=== PATIENT | female | born 1990 | race Caucasian/White ===

== ENCOUNTER 2023-08-27 10:38 | Inpatient (IN) ==
[2023-08-27] MEDS ORDERED: OXYTOCIN 30 UNITS/NSS 30 UNITS/500 ML BAG IV PRN (12:26)
[2023-08-27] MEDS ORDERED: LIDOCAINE 1% LOCAL 20 ML VIAL INFIL PRN (12:26)
--- NOTE | 2023-08-27 12:39 | History & Physical Report ---
Date of Service August 27, 2023 Assessment & Plan (1) Encounter for induction of labor: Plan Admit to L and D regular diet x 2 then NPO/IV fluids labs Cervidil PV for cervical ripening then Pitocin AROM as needed to augment labor pain meds including epidural eventually as the pt desires Admission and Anticipated Discharge Date Admission Date: August 27, 2023 History of Present Illness Chief Complaint: induction of labor for postdates. Primary Care Provider: NO PCP pt 32 yr old 41 weeks came in for induction of labor for post dates. pt denies regular uterine contractions, vaginal bleeding, leaking of fluid per vagina etc. repots good movement. Allergies Allergy/AdvReac Type Severity Reaction Status Date / Time Penicillins Allergy Anaphylaxis Verified 08/27/23 11:58 latex AdvReac Rash Verified 08/27/23 11:58 Past Med/Surg History Problem List (Updated 08/27/23 @ 12:36 by Kelly Roland MD) Encounter for induction of labor Medical History No known health problems Surgical History No history of previous surgery Social History Smoking Status: Never smoker Hx Alcohol Use: No Hx Substance Use: No Beliefs That Will Affect Care: None marital status: Current Living Situation: Spouse Other Information That Helps Us Care for You: No Feels Safe at Home: No Is there a partner from a previous relationship who is making you feel unsafe now?: No Any Concerns about Your Family Situation: No Would You Like to Speak to Someone About Your Situation: No Safety Concerns: Feels Safe At This Time Assistive Devices: None Review of Systems Review of Systems: All systems reviewed & are unremarkable except as noted in HPI & below Constitutional: as per Subjective / HPI Respiratory: as per Subjective / HPI Cardiovascular: as per Subjective / HPI Gastrointestinal: as per Subjective / HPI Physical Exam Constitutional: WD/WN, vitals as above Eyes: PERRL, conjunctivae normal, anicteric sclerae Respiratory: normal respiratory effort, lungs clear to auscultation Cardiovascular: RRR, no murmur, no edema Gastrointestinal (Abdomen): normal bowel sounds, soft, nontender, no hepatosplenomegaly Skin: no rashes, warm and dry Genitourinary: no vaginal lesions, no adnexal mass Manual OB Exam: + cervical dilation fingertip, + cervical effacement 30% and + station high OB Exam Monitor Tracing: + external FHT monitor used, + category I and + normal FHT variability Results & Data Results & Data Vital Signs (Past 12 Hours) Vital Signs Temp Pulse Resp BP 08/27/23 10:55 36.6 C 18 08/27/23 10:53 86 116/74 Laboratory Results GBS Negative
[2023-08-27] MEDS: DINOPROSTONE 10 MG INSERT PV ONE (12:42)
[2023-08-27 13:12] LABS: Hematocrit (blood only) 35.4 % (37.0-47.0); Mean Corpuscular Hemoglobin 31.7 pg (25.0-34.0); Mean Corpuscular Hgb Conc 33.9 g/dL (32.0-36.0); Mean Corpuscular Volume 93.7 fL (80.0-100.0); Platelet Count 185 K/uL (130-400); RDW Coefficient of Variation 13.2 % (11.5-14.5); RDW Standard Deviation 44.5 fL (36.4-46.3); Red Blood Count 3.78 M/uL (4.20-5.40); White Blood Count 7.01 K/ul (4.8-10.8)
[2023-08-27 13:52] LABS: HIV 4th Gen(HIV 1,2 AB+p24 Ag Negative (Negative)
[2023-08-27 13:59] LABS: HepB Surface Ag with confirm Negative (Negative)
[2023-08-27 14:04] LABS: HepC Ab Rflx HepCQuant RNA Negative (Negative)
--- OUTSIDE RECORDS SUMMARY | 2023-08-27 19:07 | External Medical Summary | Summary of Care ---
Author Name Unknown Organization [facility] Address [address] [place] [address] Phone [phone] Care Team Providers Care Admitting Supervisor Name Role Phone Kenny East MD Primary Care Provider +1- [phone] Reason for Visit * Reason Onset Date Comments Advice 08/17/2023 Encounter Details Date Type Department Care Team (Late st Contact Info) Description 08/17/2023 Telephone [facility] [address] [place] [address] Kenny East MD [address] [place] [address] Advice Allergies Active Allergy Reactions Criticality Noted Date Comments Amoxicillin 05/03/1999 rash Bee Venom 04/18/1999 Penicillins Low 09/10/2011 documented as of this encounter (statuses as of 08/17/2023) Medications Medication Sig Dispensed Refills Start Date End Date Status Breast Pump Dispense double electric breast pump. Dx:Z39.1 1 Each 05/22/2023 Active documented as of this encounter (statuses as of 08/17/2023) Active Problems Problem Noted Date Diagnosed Date , normal first 01/09/2023 Anxiety 12/18/2022 Dysmenorrhea 10/25/2012 Allergic rhinitis 01/16/2012 ADVANCE DIRECTIVE INFORMATION 09/20/2004 Overview: Not applicable (under age of 18) CONJUNCTIVITIS, ALLERGIC 05/03/1999 Estimated Date of Delivery Comme nts Yes 08/18/2023 Based on last me nstrual period of 11/11/2022 (Exact Date) documented as of this encounter (statuses as of 08/17/2023) Resolved Problems Problem Noted Date Diagnosed Date Resolved Date Fever 10/25/2012 10/22/2014 Acute pharyngitis 01/16/2012 10/22/2014 Overweight (BMI 25.0-29.9) 01/16/2012 0 10/22/2014 BENIGN ISELA SKIN TRUNK 06/14/20052014 STREP SORE THROAT 04/30/2002 09/01/2005 Sebaceous cyst 04/30/2002 10/22/2014 Varicella without complication 09/05/2001 09/01/2005 CLAVICLE FX AT 09/05/2001 022 Overview: Historical - noted 2001 Asthma with severity to be determined 09/05/2001 06/14/2009 Overview: ICD-10 update of inactive term Conjunctivitis 05/18/1999 06/14/2009 Abdominal pain, epigastric 05/03/1999 0 10/22/2014 Constipation 05/03/1999 10/22/2014 Overview: ICD-10 update of inactive term Allergic rhinitis 05/03/1999 01/16/2012 documented as of this encounter (statuses as of 08/17/2023) Immunizations Name Administration Dates Next Due DTWP - Dipth/Tet/Whole Cell Pertussis ,12/10/1989,03/13/1989,01/08,01/08/1989 HPV Vaccine, 4-Valent 07/30/2006,03/30/2006,01/06 Haemophilius B (HIB), unspecified 03/11/1990 Hepatitis B Vaccine 04/20/1994,10/21/1993,1993 IPV - Polio Virus Vaccine (Inact) 06/06/1993 MMR - Measles/Mumps/Rubella Vaccine 06/06/1990,1 02/09/1989 Meningococcal Polysaccharide Vaccine (Menommune) 08/07/2007 OPV - Polio Virus Vaccine (Oral) 12/10/1989,05/1988,1988 Seasonal Influenza Virus Vac cine, Unspecified Formulation 12/05/1994 TB Ellie Test 1989 TD - Tetanus/Diptheria (ADULT) 04/09/2003 documented as of this encounter Social History Tobacco Use Types Packs/Day Years Used Date Smoking Tobacco: Never Passive Smoke Exposure: Never Smokeless Tobacco: Never Comments:non smoking househo ld Alcohol Use Standard Drinks/Week Comments Not Currently 0 (1 standard drink = 0.6 oz pur e alcohol) occ Hunger Vital Sign Answer Date Recorded Within the past 12 months, y ou worried that your food would run out before you got the money to buy more. Never true 01/10/20 23 Within the past 12 months, t he food you bought just didn't last and you didn't have money to get more. Never true 01/09/2023 [place] Depression Scale Answer Date Recorded [place] Depression Scale Total 9 08/06/2023 The thought of harming myself has occurred to me . Never 08/06/2023 Childcare Answer Date Recorded Do you feel overwhelmed with taking care of a child, family member or friend? No 01/09/2023 Does your family need help f inding childcare? (Household - for ages 0-17 years) Not on file 01/09/2023 Clothing Answer Date Recorded Have you been unable to get clothing when it was really needed? No 01/09/2023 Is your family able to get c lothes or diapers when needed? (Household - for ages 0-17 years) Not on file 01/09/2023 Personal Safety Answer Date Recorded Do you feel unsafe or have concerns for your saf ety? No 01/09/2023 Do you have concerns for you r family's safety? (Household - for ages 0-17 years) Not on file 01/09/2023 Utilities Answer Date Recorded Do you have trouble paying y our heating, water, or electric bill? No 01/09/2023 Is your family able to pay t he heat, water, or electric bill? (Household - for ages 0-17 years) Not on file 01/09/2023 Does your family have access to good internet? (Household - for ages 0-17 years) Not on file 01/09/2023 Employment Status Answer Date Recorded Are you unemployed or without regular income? No 01/09/2023 Does the household have a re gular source of income? (Household - for ages 0-17 years) Not on file 01/09/2023 Social Connections Answer Date Recorded How often do you feel lonely or isolated from th ose around you? Never 01/09/2023 Financial Resource Strain Answer Date R ecorded Do you have any trouble payi ng for your medications, or do you think you might in the future? No 01/09/2023 Does your family have troubl e paying for medicine? (Household - for ages 0-17 years) Not on file 01/09/2023 Transportation Needs Answer Date Record ed READ ONLY Do you have troubl e getting a ride to medical visits or work? Never True 01/09/2023 Does your family have a hard time getting a ride to doctors visits? (Household - for ages 0-17 years) Not on file 01/09/2023 Has lack of transportation k ept you from medical appointments, meetings, work, or from getting things needed for daily living? Check all that apply. (Adult - for ages 18 years and over) Not on file 01/09/2023 Do you (or your family) have trouble finding or paying for a ride (transportation)? (Household - for ages 0-17 years) Not on file 01/09/2023 Housing Stability Answer Date Recorded Do you currently live in a s helter or have no steady place to sleep at night? No 01/09/2023 READ ONLY Do you think you a re at risk of becoming homeless? No 01/09/2023 Does your family worry about paying for your home or becoming homeless? (Household - for ages 0-17 years) Not on file 1 03/12/2022 Are you homeless or worried that you might be in the future? (Adult - for ages 18 years and over) Not on file Are you (or your family) ella eless or worried that you might be in the future? (Household - for ages 0-17 years) Not on file Food Insecurity Answer Date Recorded Do you need food for this week? No 01/09/2023 Are you able to get enough f ood for your family? (Household - for ages 0-17 years) Not on file 01/09/2023 Does your family need food t his week? (Household - for ages 0-17 years) Not on file 01/09/2023 Do you always have enough fo od for your family? (Household - for ages 0-17 years) Not on file 01/09/2023 Estimated Date of Delivery Comme nts Yes 08/18/2023 Based on last me nstrual period of 11/11/2022 (Exact Date) Sex and Gender Information Value Date Recorded Sex Assigned at Female 01/09/2023 1:20 PM EST Gender Identity Female 12/17/2022 7:14 PM EST Sexual Orientation Straight 01/09/2023 1: 20 PM EST Job Start Date Occupation Industry Not on file Not on file Not on file documented as of this encounter Miscellaneous Notes * Telephone Encounter - Jossy Sampson LPN - 08/17/2023 11:46 AM EDT Patient calling. Would like an appt. To discuss depression medication. She wants to be prepared . She is not suicidal. Placed with Nicol on 08/20/23 @ 10:40 a.m. Transferred to [place] in THERAPY SITE COORDINATOR scheduling * Telephone Encounter - Juliana Lucas OSA - 08/17/2023 11:41 AM EDT Patient called asking to speak to a nurse with questions regarding depression medications post , also to ask about a vaginal sweep for her . Trans to [facility] nurse: Jossy documented in this encounter Plan of Treatment Upcoming Encounters Date Type Department Care Team (Late st Contact Info) Description 08/20/2023 10:40 AM EDT [facility] Visit [facility] [address] [facility] [place] [id number] Nicol Sanford PA-C [address] [facility] [address] 08/21/2023 3:45 PM EDT Office Visit Gynecology/Obstetrics, [place] [address] [place] [address] Parul Wiggins MD [address] [id number] Health Maintenance Due Date Last Done Comments Depression Screening 2000 DTaP,Tdap,and Td Vaccines (6 - Tdap) 04/10/2003 04/09/2003, 06/06/1993, 06/06/1993, Additional history exists COVID-19 Vaccine ( season) 2022 Influenza Vaccine (FLU shot) (#1) 2023 12/05/1994 Pap Smear 01/09/2026 01/09/2023, 06/05, 06/19/2011 Cervical Cancer Screening 01/10/2028 HPV/Co-Test 01/10/2028 01/09/2023 Hepatitis B Vaccine Completed 04/20/1994, 04/20/1994, 10/21/1993, Additional history exists HPV (Gardasil) Vaccine Completed , 03/30/2006, 01/24/2006 MENINGOCOCCAL (MENACTRA/MENVEO) Aged Out 08/07/2007 No longer eligible based on patient's age to complete this topic Pneumococcal Vaccine: Pediatrics (0 to 5 Years) and At-Risk Patients (6 to 64 Years) Aged Out No longer eligible based on patient's age to complete this topic documented as of this encounter Medical Devices Not on filedocumented as of this encounter Care Teams Admitting Supervisor Relationship Specialty Start Date End Date Kenny East MD [address] [place] [address] PCP - General 03/16/06 documented as of this encounter
--- OUTSIDE RECORDS SUMMARY | 2023-08-27 19:07 | External Medical Summary | Summary of Care ---
Author Name Unknown Organization [facility] Address [address] [place] [address] Phone [phone] Care Team Providers Care Crutch Maker Name Role Phone Kenny East MD Primary Care Provider +1- [phone] Reason for Visit * Reason Comments Return Visit Encounter Details Date Type Department Care Team (Late st Contact Info) Description 08/22/2023 8:30 AM EDT Office Visit Gynecology/Obstetric s [facility]aila Hurtado [address] [place] [address] Norma Richardson CRNP [address] [facility] [place] [address] Encounter for supervision of normal first in third trimester* Allergies Active Allergy Reactions Criticality Noted Date Comments Amoxicillin 05/03/1999 rash Bee Venom 04/18/1999 Penicillins Low 09/10/2011 documented as of this encounter (statuses as of 08/22/2023) Medications Medication Sig Dispensed Refills Start Date End Date Status Breast Pump Dispense double electric breast pump. Dx:Z39.1 1 Each 05/22/2023 Active Escitalopram Oxalate 10 MG Oral Tablet (Lexapro)Indication s:Anxiety Take 0.5 Tablets by mouth daily for 7 days, THEN 1 Tablet daily. 30 Tablet 5 08/20/2023 08/19/2024 Active documented as of this encounter (statuses as of 08/22/2023) Active Problems Problem Noted Date Diagnosed Date , normal first 01/09/2023 Anxiety 12/18/2022 Dysmenorrhea 10/25/2012 Allergic rhinitis 01/16/2012 ADVANCE DIRECTIVE INFORMATION 09/20/2004 Overview: Not applicable (under age of 18) CONJUNCTIVITIS, ALLERGIC 05/03/1999 Estimated Date of Delivery Comme nts Yes 08/18/2023 Based on last me nstrual period of 11/11/2022 (Exact Date) documented as of this encounter (statuses as of 08/22/2023) Resolved Problems Problem Noted Date Diagnosed Date [...] as of this encounter (statuses as of 08/22/2023) Immunizations Name Administration Dates Next Due HPV Vaccine, 4-Valent 07/30/2006,03/30/2006,01/06 Meningococcal Polysaccharide Vaccine (Menommune) 08/07/2007 documented as of this encounter Social History [...] money to get more. Never true 01/09/2023 [place] Depression Scale Answer Date Recorded [place] Depression Scale Total 9 08/06/2023 The thought [...] on file documented as of this encounter Last Filed Vital Signs Vital Sign Reading Time Taken Comments Blood Pressure 102/62 08/22/2023 8:50 AM EDT Pulse - - Temperature - - Respiratory Rate - - Oxygen Saturation - - Inhaled Oxygen Concentration - - Weight 85.3 kg (188 lb) 08/22/2023 8:50 AM EDT Height - - Body Mass Index 29.44 08/20/2023 10:53 AM EDT documented in this encounter Progress Notes * Norma Richardson CRNP - 08/22/2023 8:52 AM EDT 40w4d Ctx, not regular. Good movement. No bleeding/LOF. Recently given prescription for Lexapro through PCP; has not started this but has it on hand for PP if needed. Requests membrane sweep; unable to perform as cervix is long/closed. Scheduled for IOL next Sunday. Call sooner prn. Can Labeler Documentation Provider requested general farmer. Name of general farmer: CARRIE Alejandro documented in this encounter Plan of Treatment Upcoming Encounters Date Type Department Care Team (Late st Contact Info) Description 11/20/2023 11:40 AM EDT [facility] [address] [facility] [id number] Nicol Sanford [facility]-C [address] [facility] [address] Health Maintenance Due Date Last Done Comments Depression Screening 2000 DTaP,Tdap,and Td Vaccines (6 - Tdap) 04/10/2003 04/09/2003, 06/06/1993, 06/06/1993, Additional history exists COVID-19 Vaccine (2022-24 season) 2022 Influenza Vaccine (FLU shot) (#1) [...] Not on filedocumented as of this encounter Visit Diagnoses Diagnosis Encounter for supervision of normal first in third trimester- Primary Supervision of normal first documented in this encounter Care Teams Crutch Maker Relationship Specialty Start Date End Date Kenny East MD [address] [place] [address] PCP - General 03/16/06 documented as of this encounter
--- OUTSIDE RECORDS SUMMARY | 2023-08-27 19:07 | External Medical Summary | Summary of Care ---
Author Name Unknown Organization [facility] Address [address] [place] [address] Phone [phone] Care Team Providers Care Inside Polisher Name Role Phone Kenny East MD Primary Care Provider +1- [phone] Reason for Visit * Reason Onset Date Comments Advice 08/17/2023 Encounter Details Date Type Department Care Team (Late st Contact Info) Description 08/17/2023 Telephone [facility] [address] [place] [address] Kenny East MD [address] [place] [address] Advice Allergies Active Allergy Reactions [...] 08/17/2023) Immunizations Name Administration Dates Next Due HPV [...] money to get more. Never true 01/09/2023 [place] Depression Scale Answer Date Recorded [place] Depression Scale Total 9 08/06/2023 The thought [...] with Nicol on 08/20/23 @ 10:40 a.m. * Telephone Encounter - Juliana Lucas OSA - 08/17/2023 11:41 AM EDT Patient called asking to speak to a nurse with questions regarding depression medications post , also to ask about a vaginal sweep for her . Trans to [facility] nurse: Jossy documented in this encounter Plan of Treatment Upcoming Encounters Date Type Department Care Team (Late st Contact Info) Description 08/20/2023 10:40 AM EDT Office Visit [facility] [address] [place] [address] Nicol Sanford PA-C [address] [place] [address] 08/21/2023 3:45 PM EDT Office Visit Gynecology/Obstetrics, [place] [address] [place] [address] Parul Wiggins MD [address] [facility] [place] [address] Health Maintenance Due Date Last Done Comments [...] filedocumented as of this encounter Care Teams Inside Polisher Relationship Specialty Start Date End Date Kenny East MD [address] [place] [address] PCP - General 03/16/06 documented as of this encounter
--- OUTSIDE RECORDS SUMMARY | 2023-08-27 19:07 | External Medical Summary | Summary of Care ---
Author Name Unknown Organization [facility] Address [address] [place] [address] Phone [phone] Care Team Providers Care Rn Observation Name Role Phone Kenny East MD Primary Care Provider +1- [phone] Encounter Details Date Type Department Care Team (Late st Contact Info) Description 08/17/2023 Telephone Gynecology/Obstetrics [facility] [address] [place] [address] Norma Richardson CRNP [address] [place] [address] Allergies Active Allergy Reactions Criticality Noted Date [...] money to buy more. Never true 01/10/20 Within the past 12 months, t he food you bought just didn't last and you didn't have money to get more. Never true 01/09/2023 [place] Depression Scale Answer Date Recorded [place] Depression Scale Total 9 08/06/2023 The thought [...] encounter Miscellaneous Notes * Telephone Encounter - Roseanna Eugene RN - 08/17/2023 12:10 PM EDT T/C from pt stating her GUI visit for next week is scheduled in [place] and she would like it rescheduled for [facility]. Pt told at this short notice I cannot guarantee her any openings. Pt states she was told if she called in they would get her in. Pt would like to be rescheduled. documented in this encounter Plan of Treatment Upcoming Encounters Date Type Department Care Team (Late st Contact Info) Description 11/20/2023 11:40 AM EDT Office Visit [facility] [address] [place] [address] Nicol Sanford PA-C [address] [place] [address] Health Maintenance Due Date Last Done Comments [...] filedocumented as of this encounter Care Teams Rn Observation Relationship Specialty Start Date End Date Kenny East MD [address] [facility] [place] [address] PCP - General 03/16/06 documented as of this encounter
--- OUTSIDE RECORDS SUMMARY | 2023-08-27 19:07 | External Medical Summary | Summary of Care ---
Author Name Unknown Organization [facility] Address [address] [place] [address] Phone [phone] Care Team Providers Care Scratch Brusher Name Role Phone Kenny East MD Primary Care Provider +1- [phone] Reason for Visit * Reason Comments Return Visit Encounter Details Date Type Department Care Team (Late st Contact Info) Description 08/14/2023 1:45 PM EDT Office Visit Gynecology/Obstetric s Laila Hurtado [address] [facility] [place] [address] Norma Richardson CRNP [address] [facility] [place] [address] Encounter for supervision of normal first in third trimester* Allergies Active Allergy Reactions Criticality Noted Date Comments Amoxicillin 05/03/1999 rash Bee Venom 04/18/1999 Penicillins Low 09/10/2011 documented as of this encounter (statuses as of 08/14/2023) Medications Medication Sig Dispensed Refills Start Date End Date Status Breast Pump Dispense double electric breast pump. Dx:Z39.1 1 Each 05/22/2023 Active documented as of this encounter (statuses as of 08/14/2023) Active Problems Problem Noted Date Diagnosed Date , normal first 01/09/2023 Anxiety 12/18/2022 Dysmenorrhea 10/25/2012 Allergic rhinitis 01/16/2012 ADVANCE DIRECTIVE INFORMATION 09/20/2004 Overview: Not applicable (under age of 18) CONJUNCTIVITIS, ALLERGIC 05/03/1999 Estimated Date of Delivery Comme nts Yes 08/18/2023 Based on last me nstrual period of 11/11/2022 (Exact Date) documented as of this encounter (statuses as of 08/14/2023) Resolved Problems Problem Noted Date Diagnosed Date [...] as of this encounter (statuses as of 08/14/2023) Immunizations Name Administration Dates Next Due HPV [...] money to get more. Never true 01/09/2023 [place] Depression Scale Answer Date Recorded [place] Depression Scale Total 9 08/06/2023 The thought [...] No 01/09/2023 Does the household have a [facility] hospitall[facility] source of income? (Household - for ages [...] Sign Reading Time Taken Comments Blood Pressure 110/64 08/14/2023 1:51 PM EDT Pulse - - Temperature - - Respiratory Rate - - Oxygen Saturation - - Inhaled Oxygen Concentration - - Weight 85.7 kg (189 lb) 08/14/2023 1:51 PM EDT Height - - Body Mass Index 29.6 07/17/2023 10:18 AM EDT documented in this encounter Progress Notes * Norma Richardson CRNP - 08/14/2023 1:57 PM EDT 39w3d Good movement. No regular ctx. Denies bleeding, leaking. Ok with 41 wk induction, nursing to schedule. Discussed induction process. Call with regular ctx, bleeding, concerns for ROM, or decreased FM. 1 week return CARRIE Ramos documented in this encounter Nursing Notes * Stephanie Contreras LPN - 08/14/2023 1:52 PM EDT 39w3d Denies vaginal bleeding/rom + movement No new concerns 41 week IOL documented in this encounter Plan of Treatment Upcoming Encounters Date Type Department Care Team (Late st Contact Info) Description 08/24/2023 3:15 PM EDT Office Visit Gynecology/Obstetrics [facility] [address] [facility] [place] [address] Maria Luz Cade CNM [address] [place] [address] Health Maintenance Due Date Last Done Comments [...] first documented in this encounter Care Teams Scratch Brusher Relationship Specialty Start Date End Date Kenny East MD [address] [place] [address] PCP - General 03/16/06 documented as of this encounter
--- OUTSIDE RECORDS SUMMARY | 2023-08-27 19:07 | External Medical Summary | Summary of Care ---
Author Name Unknown Organization [facility] Address [address] [place] [address] Phone [phone] Care Team Providers Care Report Analyst Name Role Phone Kenny East MD Primary Care Provider +1- [phone] Reason for Visit * Reason Comments Follow Up Pt states that she i s here for medication follow up Encounter Details Date Type Department Care Team (Late st Contact Info) Description 08/20/2023 10:40 AM EDT Office Visit [facility] [address] [place] [address] Nicol Sanford PAWendiC [address] [place] [address] Anxiety*; Encounter for supervision of normal first in third trimester Allergies Active Allergy Reactions Criticality Noted Date Comments Amoxicillin 05/03/1999 rash Bee Venom 04/18/1999 Penicillins Low 09/10/2011 documented as of this encounter (statuses as of 08/20/2023) Medications Medication Sig Dispensed Refills Start Date End Date Status Breast Pump Dispense double electric breast pump. Dx:Z39.1 1 Each 05/22/2023 Active Escitalopram Oxalate 10 MG Oral Tablet (Lexapro)Indication s:Anxiety Take 0.5 Tablets by mouth daily for 7 days, THEN 1 Tablet daily. 30 Tablet 5 08/20/2023 08/19/2024 Active documented as of this encounter (statuses as of 08/20/2023) Active Problems Problem Noted Date Diagnosed Date , normal first 01/09/2023 Anxiety 12/18/2022 Dysmenorrhea 10/25/2012 Allergic rhinitis 01/16/2012 ADVANCE DIRECTIVE INFORMATION 09/20/2004 Overview: Not applicable (under age of 18) CONJUNCTIVITIS, ALLERGIC 05/03/1999 Estimated Date of Delivery Comme nts Yes 08/18/2023 Based on last me nstrual period of 11/11/2022 (Exact Date) documented as of this encounter (statuses as of 08/20/2023) Resolved Problems Problem Noted Date Diagnosed Date [...] as of this encounter (statuses as of 08/20/2023) Immunizations Name Administration Dates Next Due HPV Vaccine, 4-Valent 07/30/2006,03/30/2006,01/06 Meningococcal Polysaccharide Vaccine ([place]) 08/07/2007 documented as of this encounter Social History Tobacco Use Types Packs/Day Years Used Date Smoking Tobacco: Never Passive Smoke Exposure: Never Smokeless Tobacco: Never Tobacco Cessation:Counseling Given: Not Answered Comments:non smoking household Alcohol Use Standard Drinks/Week Comments Not Currently [...] money to get more. Never true 01/09/2023 [place] Depression Scale Answer Date Recorded [place] Depression Scale Total 9 08/06/2023 The thought [...] Sign Reading Time Taken Comments Blood Pressure 126/80 08/20/2023 10:53 AM EDT Pulse 114 08/20/2023 10:53 AM EDT Temperature 36.1 C (96.9 F) 08/20/2023 10:53 AM E DT Respiratory Rate 16 08/20/2023 10:53 AM EDT Oxygen Saturation 98% 08/20/2023 10:53 AM EDT Inhaled Oxygen Concentration - - Weight 85.9 kg (189 lb 6.4 oz) 08/20/2023 10:53 AM EDT Height 170.2 cm (5' 7") 08/20/2023 10:53 AM EDT Body Mass Index 29.66 08/20/2023 10:53 AM EDT documented in this encounter Progress Notes * Nicol Sanford PA-C - 08/20/2023 10:48 AM EDT Images from the original note were not included. History of Present Illness Yeni Ang is a 32 year old female that presents for Follow Up (Pt states that she is here for medication follow up) Here for med follow up 2 years ago was on Prozac She is being induced on Sunday. Baby is a by and is measuring big Having contractions She is going about her day as normal Drinking well - at least 120 oz a day At one point was taking 10 mg of prozac She never took consistently She felt like it was not a good idea as she knew she was going to get . She is planning on breast feeding. Physical Exam Vitals: 08/20/23 1053 Temp: 36.1 C (96.9 F) Pulse: 114 Resp: 16 SpO2: 98% BP: 126/80 BMI: 29.66 BP Readings from Last 3 Encounters: 08/20/23 126/80 08/14/23 110/64 08/06/23 106/64 Wt Readings from Last 3 Encounters: 08/20/23 85.9 kg (189 lb 6.4 oz) 08/14/23 85.7 kg (189 lb) 08/06/23 85.7 kg (189 lb) BMI Readings from Last 3 Encounters: 08/20/23 29.66 kg/m 08/14/23 29.60 kg/m 08/06/23 29.60 kg/m Ht Readings from Last 3 Encounters: 08/20/23 1.702 m (5' 7") 07/17/23 1.702 m (5' 7") 06/07/23 1.702 m (5' 7") General: alert, healthy, and no distress Head: Normocephalic, No masses, lesions, tenderness or abnormalities Heart: regular rate & rhythm, no murmur, no gallops, S-1 normal, and S-2 normal Lungs: chest symmetric with normal AP diameter, no chest deformities noted, no chest wall tenderness, lungs clear to auscultation Extremities: less than 2 second capillary refill, no joint deformities, effusion, or inflammation Skin: skin color, texture, turgor are normal, no rashes or significant lesions Assessment and Plan Anxiety (Primary) - Escitalopram Oxalate 10 MG Oral Tablet (Lexapro); Take 0.5 Tablets by mouth daily for 7 days, THEN 1 Tablet daily. Encounter for supervision of normal first in third trimester Wrap-Up Per literature, zoloft and lexapro safest in breast feeding She defers zoloft Time: I spent a total of 10-19 minutes (exact time 19 mins) on the date of service in preparation, delivery, and documentation of the care provided to Yeni Ang excluding any time spent in the performance of separately billed services. Nicol Sanford PA-C 08/20/2023 11:21 AM documented in this encounter Nursing Notes * Patricia Pearson LPN - 08/20/2023 10:53 AM EDT Yeni Ang is a 32 year old female who presents today for Chief Complaint Patient presents with Follow Up Pt states that she is here for medication follow up documented in this encounter Plan of Treatment Upcoming Encounters Date Type Department Care Team (Late st Contact Info) Description 08/21/2023 3:45 PM EDT Office Visit Gynecology/Obstetrics, [place] [address] [address] Parul Wiggins MD [address] [place] [address] 11/20/2023 11:40 AM EDT Office Visit [facility] [place] [address] [place] [address] Nicol Sanford PA-C [address], [place] [id number] Health Maintenance Due Date Last Done Comments [...] as of this encounter Visit Diagnoses Diagnosis Anxiety- Primary Anxiety state, unspecified Encounter for supervision of normal first in third trimester Supervision of normal first documented in this encounter Care Teams Report Analyst Relationship Specialty Start Date End Date Kenny East MD [address] [facility] [address] PCP - General 03/16/06 documented as of this encounter
--- OUTSIDE RECORDS SUMMARY | 2023-08-27 19:08 | External Medical Summary | Summary of Care ---
Author Name Unknown Organization [facility] Address [address] [place] [address] Phone [phone] Care Team Providers Care Retail Department Supervisor Name Role Phone Kenny East MD Primary Care Provider +1- [phone] Reason for Visit * Reason Comments Outpatient Testing Encounter Details Date Type Department Care Team (Late st Contact Info) Description 06/29/2023 2:00 PM EDT Laboratory Laboratory, [facility] [address] [place] [phone] [facility] [address] [place] [address] Encounter for supervision of normal first in second trimester; Encounter for supervision of normal first in third trimester Allergies Active Allergy Reactions Criticality Noted Date Comments Amoxicillin 05/03/1999 rash Bee Venom 04/18/1999 Penicillins Low 09/10/2011 documented as of this encounter (statuses as of 06/29/2023) Medications Medication Sig Dispensed Refills Start Date End Date Status Breast Pump Dispense double electric breast pump. Dx:Z39.1 1 Each 05/22/2023 Active documented as of this encounter (statuses as of 06/29/2023) Active Problems Problem Noted Date Diagnosed Date , normal first 01/09/2023 Anxiety 12/18/2022 Dysmenorrhea 10/25/2012 Allergic rhinitis 01/16/2012 ADVANCE DIRECTIVE INFORMATION 09/20/2004 Overview: Not applicable (under age of 18) CONJUNCTIVITIS, ALLERGIC 05/03/1999 Estimated Date of Delivery Comme nts Yes 08/18/2023 Based on last me nstrual period of 11/11/2022 (Exact Date) documented as of this encounter (statuses as of 06/29/2023) Resolved Problems Problem Noted Date Diagnosed Date [...] as of this encounter (statuses as of 06/29/2023) Immunizations Name Administration Dates Next Due HPV [...] money to get more. Never true 01/09/2023 [place] Depression Scale Answer Date Recorded [place] Depression Scale Total 6 01/09/2023 The thought of harming myself has occurred to me . Never 01/09/2023 Estimated Date of Delivery Comme nts [...] on file documented as of this encounter Plan of Treatment Upcoming Encounters Date Type Department Care Team (Late st Contact Info) Description 07/17/2023 10:00 AM EDT Office Visit Gynecology/Obstetrics [facility] [address] [place] [address] Esther Garcia CRNP [address] [place] [address] Pending Results Name Type Priority Associated Diagnoses Date /Time CBC WITH WBC DIFFERENTIAL AND ANEMIA REFLEX WORKUP Lab Routine Encounter for supervision of normal first in second trimester 06/29/2023 2:44 PM EDT SYPHILIS ANTIBODY SCREEN WITH REFLEX TO RPR Lab Routine Encounter for supervision of normal first in second trimester 06/29/2023 2:44 PM EDT 50-G GESTATIONAL GLUCOSE, 1 HOUR Lab Routine Encounter for supervision of normal first in third trimester 06/29/2023 2:44 PM EDT ANEMIA CBC Lab Routine Encounter for supervision of normal first in second trimester 06/29/2023 2:44 PM EDT DIFFERENTIAL, AUTOMATED Lab Routine Encounter for supervision of normal first in second trimester 06/29/2023 2:44 PM EDT ANEMIA REFLEX CHEMISTRY HOLD Lab Routine Encounter for supervision of normal first in second trimester 06/29/2023 2:44 PM EDT SYPHILIS ANTIBODY SCREEN Lab Routine Encounter for supervision of normal first in second trimester 06/29/2023 2:44 PM EDT Health Maintenance Due Date Last Done Comments Depression Screening 2000 DTaP,Tdap,and Td Vaccines (6 - Tdap) 04/10/2003 04/09/2003, 06/06/1993, 06/06/1993, Additional history exists COVID-19 Vaccine ( season) 2022 Influenza Vaccine (FLU shot) (Season Ended) 2023 12/05/1994 Pap Smear 01/09/2026 01/09/2023, 06/05, 06/19/2011 Cervical Cancer Screening 01/10/2028 HPV/Co-Test 01/10/2028 01/09/2023 Hepatitis B Completed 04/20/1994, 04/05, 10/21/1993, Additional history exists GARDASIL-HPV IMMUNIZATION SERIES Completed 07/30/2006, 03/30/2006, 01/24/2006 MENINGOCOCCAL (MENACTRA/MENVEO) Aged Out 08/07/2007 [...] Encounter for supervision of normal first in second trimester Supervision of normal first Encounter for supervision of normal first in third trimester Supervision of normal first documented in this encounter Care Teams Retail Department Supervisor Relationship Specialty Start Date End Date Kenny East MD [address] [place] [address] PCP - General 03/16/06 documented as of this encounter
--- OUTSIDE RECORDS SUMMARY | 2023-08-27 19:08 | External Medical Summary ---
Author Name Unknown Address Unknown Organization [id number]:LABORATORY [facility] [place] - [address] [facility] [place] [address] Laboratory Report Ordering Provider Test Date Status GEOVANI BUSBY 06/29/2023 14:44:29 Final Observation Date Value Abnormality Reference (Units ) Status Treponema pallidum Ab [Presence] in Serum by Immunoassay 06/29/2023 14:44:29 Nonreactive Nonreactive Final No serologic evidence of syp hilis. No additional testing clinicially indicated at this time. Consider repeat testing in 2-4 weeks if acute or primary syphilis is suspected. Performing Location LABORATORY [facility] [address] [facility] [address]
--- OUTSIDE RECORDS SUMMARY | 2023-08-27 19:08 | External Medical Summary ---
Author Name Unknown Address Unknown Organization [id number]:[facility] [place] [address] [place] [address] Laboratory Report Ordering Provider Test Date Status GEOVANI BUSBY 06/29/2023 14:44:29 Final Observation Date Value Abnormality Reference (Units ) Status Creatinine 06/29/2023 14:44:29 0.7 0.5-1.0 (mg/dL) Final Glomerular filtration rate/1.73 sq M.predicted [Volume Rate/Area] in Serum, Plasma or Blood by Creatinine-based formula (CKD-EPI) 06/29/2023 14:44:29 >90 >=60 (mL/min) Final eGFR is calculated based on the CKD-EPI 2020 equation Performing Location LAB[facility]ORY [facility] - [place] [address] [place] [address]
--- OUTSIDE RECORDS SUMMARY | 2023-08-27 19:08 | External Medical Summary | Summary of Care ---
Author Name Unknown Organization [facility] Address [address] [place] [address] Phone [phone] Care Team Providers Care Learning Disabilities Resource Teacher Name Role Phone Kenny East MD Primary Care Provider +1- [phone] Reason for Visit * Reason Comments Return Visit Encounter Details Date Type Department Care Team (Late st Contact Info) Description 07/27/2023 2:30 PM EDT Office Visit Gynecology/Obstetric s [facility] [address] [place] [address] Adelina Perez, DNP, CNM [address] [place] [address] Supervision of normal first , antepartum* Allergies Active Allergy Reactions Criticality Noted Date Comments Amoxicillin 05/03/1999 rash Bee Venom 04/18/1999 Penicillins Low 09/10/2011 documented as of this encounter (statuses as of 07/27/2023) Medications Medication Sig Dispensed Refills Start Date End Date Status Breast Pump Dispense double electric breast pump. Dx:Z39.1 1 Each 05/22/2023 Active documented as of this encounter (statuses as of 07/27/2023) Active Problems Problem Noted Date Diagnosed Date , normal first 01/09/2023 Anxiety 12/18/2022 Dysmenorrhea 10/25/2012 Allergic rhinitis 01/16/2012 ADVANCE DIRECTIVE INFORMATION 09/20/2004 Overview: Not applicable (under age of 18) CONJUNCTIVITIS, ALLERGIC 05/03/1999 Estimated Date of Delivery Comme nts Yes 08/18/2023 Based on last me nstrual period of 11/11/2022 (Exact Date) documented as of this encounter (statuses as of 07/27/2023) Resolved Problems Problem Noted Date Diagnosed Date [...] as of this encounter (statuses as of 07/27/2023) Immunizations Name Administration Dates Next Due HPV [...] money to get more. Never true 01/09/2023 [place] Depression Scale Answer Date Recorded [place] Depression Scale Total 6 01/09/2023 The thought of harming myself has occurred to me . Never 01/09/2023 Childcare Answer Date Recorded Do you feel [...] No 01/09/2023 Does the household have a [facility] source of income? (Household - for [...] Sign Reading Time Taken Comments Blood Pressure 102/64 07/27/2023 2:53 PM EDT Pulse - - Temperature - - Respiratory Rate - - Oxygen Saturation - - Inhaled Oxygen Concentration - - Weight 86.4 kg (190 lb 6.4 oz) 07/27/2023 2:53 P M EDT Height - - Body Mass Index 29.82 07/17/2023 10:18 AM EDT documented in this encounter Progress Notes * Adelina Perez DNP, CNM - 07/27/2023 3:14 PM EDT 36w6d Doing well, working out doing [employer], lifting, and yoga 5-6 days per week. Plans to use condoms forpp contraception. GBS culture collected today RTO in 1 week for GUI. * Alana Ruffin MED ASSIST - 07/27/2023 2:53 PM EDT 36w6d Denies vaginal bleeding/rom + movements + headache this week GBS today documented in this encounter Plan of Treatment Upcoming Encounters Date Type Department Care Team (Late st Contact Info) Description 08/06/2023 1:30 PM EDT Office Visit Gynecology/Obstetrics [facility] [address] [place] [address] Norma Richardson CRNP [address] [place] [address] 08/14/2023 1:45 PM EDT Office Visit Gynecology/Obstetrics [facility] [address] [place] [address] Norma Richardson CRNP [address] [place] [address] Scheduled Orders Name Type Priority Associated Diagnoses Orde r Schedule GROUP B STREP CULTURE/PCR Lab Routine Supervision of normal first , antepartum Expected: 07/27/2023, Expires: 07/26/2024 Health Maintenance Due Date Last Done Comments [...] as of this encounter Visit Diagnoses Diagnosis Supervision of normal first , antepartum- Primary documented in this encounter Care Teams Learning Disabilities Resource Teacher Relationship Specialty Start Date End Date Kenny East MD [address] [place] [address] PCP - General 03/16/06 documented as of this encounter
--- OUTSIDE RECORDS SUMMARY | 2023-08-27 19:08 | External Medical Summary ---
Author Name Unknown Address Unknown Organization [id number]:LABORATORY [facility] - [address] [place] [address] Laboratory Report Ordering Provider Test Date Status JORGE ALBERTO CASILLAS 06/29/2023 14:44:29 Final The Fresh Test Observation Date Value Abnormality Reference (Units ) Status Glucose [Moles/volume] in Serum or Plasma --1 hour post 50 g glucose PO 06/29/2023 14:44:29 117 70-129 (mg/dL) Final Performing Location LABORATORY [facility] - [address] [place] [address]
--- OUTSIDE RECORDS SUMMARY | 2023-08-27 19:08 | External Medical Summary ---
Author Name Unknown Address Unknown Organization [id number]:LABORATORY [facility] [place] - [address] [place] [address] Laboratory Report Ordering Provider Test Date Status GEOVANI BUSBY 06/29/2023 14:44:29 Final Observation Date Value Abnormality Reference (Units ) Status Vitamin B12 06/29/2023 14:44:29 168 [id number] (pg/mL) Final Performing Location LABORATORY [facility] - [address] [place] [address]
--- OUTSIDE RECORDS SUMMARY | 2023-08-27 19:08 | External Medical Summary ---
Author Name Unknown Address Unknown Organization [id number]:LABORATORY [facility] [place] - [address] [place] [address] Laboratory Report Ordering Provider Test Date Status GEOVANI BUSBY 06/29/2023 14:44:29 Final Observation Date Value Abnormality Reference (Units ) Status TSH 06/29/2023 14:44:29 1.74 0.27-4.20 (uIU/mL) Final Performing Location LABORATORY [facility] - [address] [place] [address]
--- OUTSIDE RECORDS SUMMARY | 2023-08-27 19:08 | External Medical Summary ---
Author Name Unknown Address Unknown Organization [id number]:LABORATORY [facility] - [address] [place] [address] Laboratory Report Ordering Provider Test Date Status GEOVANI BUSBY 06/29/2023 14:44:29 Final Observation Date Value Abnormality Reference (Units ) Status Ferritin 06/29/2023 14:44:29 11 Below low normal 13- 150 (ng/mL) Final Performing Location LABORATORY [facility] - [address] [place] [address]
--- OUTSIDE RECORDS SUMMARY | 2023-08-27 19:08 | External Medical Summary ---
Author Name Unknown Address Unknown Organization [id number]:LABORATORY [facility] [place] - [address] [place] [address] Laboratory Report Ordering Provider Test Date Status INEZ HERNANDEZ 07/27/2023 16:02:37 Final Observation Date Value Abnormality Reference (Units ) Status Streptococcus agalactiae DNA [Presence] in Specimen by BRIANNA with probe detection 07/27/2023 16:02:37 Negative Negative Final No Group B Streptococcus det ected by culture-enhanced PCR (amplified probe). GBS GBSCT - [facility] 07/27/2023 16:02:37 0.0 Final GBS SPCCT - [facility] 07/27/2023 16:02:37 32.0 Final Performing Location LABORATORY [facility] [place] - [address] [place] [address]
--- OUTSIDE RECORDS SUMMARY | 2023-08-27 19:08 | External Medical Summary | Summary of Care ---
Author Name Unknown Organization [facility] Address [address] [place] [address] Phone [phone] Care Team Providers Care Substation Operator Helper Name Role Phone Kenny East MD Primary Care Provider +1- [phone] Reason for Visit * Reason Comments Return Visit Encounter Details Date Type Department Care Team (Late st Contact Info) Description 07/17/2023 10:00 AM EDT Office Visit Gynecology/Obstetric s [facility] [address] [place] [address] Esther Garcia CRNP [address] [place] [facility] [place] [address] Encounter for supervision of normal first in third trimester* Allergies Active Allergy Reactions Criticality Noted Date Comments Amoxicillin 05/03/1999 rash Bee Venom 04/18/1999 Penicillins Low 09/10/2011 documented as of this encounter (statuses as of 07/17/2023) Medications Medication Sig Dispensed Refills Start Date End Date Status Breast Pump Dispense double electric breast pump. Dx:Z39.1 1 Each 05/22/2023 Active documented as of this encounter (statuses as of 07/17/2023) Active Problems Problem Noted Date Diagnosed Date , normal first 01/09/2023 Anxiety 12/18/2022 Dysmenorrhea 10/25/2012 Allergic rhinitis 01/16/2012 ADVANCE DIRECTIVE INFORMATION 09/20/2004 Overview: Not applicable (under age of 18) CONJUNCTIVITIS, ALLERGIC 05/03/1999 Estimated Date of Delivery Comme nts Yes 08/18/2023 Based on last me nstrual period of 11/11/2022 (Exact Date) documented as of this encounter (statuses as of 07/17/2023) Resolved Problems Problem Noted Date Diagnosed Date [...] as of this encounter (statuses as of 07/17/2023) Immunizations Name Administration Dates Next Due HPV [...] money to get more. Never true 01/09/2023 [place] Depression Scale Answer Date Recorded [place] Depression Scale Total 6 01/09/2023 The thought [...] Sign Reading Time Taken Comments Blood Pressure 98/66 07/17/2023 10:18 AM EDT Pulse - - Temperature - - Respiratory Rate - - Oxygen Saturation - - Inhaled Oxygen Concentration - - Weight 84.4 kg (186 lb) 07/17/2023 10:18 AM EDT Height 170.2 cm (5' 7") 07/17/2023 10:18 AM EDT Body Mass Index 29.13 07/17/2023 10:18 AM EDT documented in this encounter Progress Notes * Esther Garcia CRNP - 07/17/2023 10:26 AM EDT 35w3d No concerns. Baby is active. Denies contractions, bleeding, LOF. Discussed GBS at next visit. CARRIE Gandhi documented in this encounter Nursing Notes * Anika Mccoy LPN - 07/17/2023 10:19 AM EDT 35w3d Denies concerns documented in this encounter Plan of Treatment Upcoming Encounters Date Type Department Care Team (Late st Contact Info) Description 07/27/2023 2:30 PM EDT Office Visit Gynecology/Obstetrics [facility] [address] [facility] [place] [address] Adelina Perez, LICHA, CN [address] [facility] [place] [address] 08/06/2023 1:30 PM EDT Office Visit Gynecology/Obstetrics [facility] [address] [facility] [place] [address] Norma Richardson CRNP [address] [place] [address] 08/14/2023 1:45 PM EDT Office Visit Gynecology/Obstetrics [facility] [address] [place] [place] [address] Norma Richardson CRNP [address] [place] [address] Health Maintenance Due Date Last Done Comments [...] first documented in this encounter Care Teams Substation Operator Helper Relationship Specialty Start Date End Date Kenny East MD [address] [place] [address] PCP - General 03/16/06 documented as of this encounter
--- OUTSIDE RECORDS SUMMARY | 2023-08-27 19:08 | External Medical Summary | Summary of Care ---
Author Name Unknown Organization [facility] Address [address] [place] [address] Phone [phone] Care Team Providers Care Rubber Flap Cutter Name Role Phone Kenny East MD Primary Care Provider +1- [phone] Reason for Visit * Reason Comments Return Visit Encounter Details Date Type Department Care Team (Late st Contact Info) Description 07/27/2023 2:30 PM EDT Office Visit Gynecology/Obstetric s [facility] [address] [place] [address] Adelina Perez, DNP, CNM [address] [place] [address] Supervision of normal first , [...] 07/27/2023) Immunizations Name Administration Dates Next Due DTWP [...] money to get more. Never true 01/09/2023 [place] Depression Scale Answer Date Recorded [place] Depression Scale Total 6 01/09/2023 The thought [...] 1:30 PM EDT Office Visit Gynecology/Obstetrics [facility] [address] [place] [address] Norma Richardson CRNP [address] [place] [address] 08/14/2023 1:45 PM EDT Office Visit Gynecology/Obstetrics [facility] [address] [place] [address] Norma Richardson CRNP [address] [place] [address] Pending Results Name Type Priority Associated Diagnoses Date /Time GROUP B STREP CULTURE/PCR Lab Routine Supervision of normal first , antepartum 07/27/2023 4:02 PM EDT Scheduled Orders Name Type Priority Associated Diagnoses [...] Primary documented in this encounter Care Teams Rubber Flap Cutter Relationship Specialty Start Date End Date Kenny East MD [address] [place] [address] PCP - General 03/16/06 documented as of this encounter
--- OUTSIDE RECORDS SUMMARY | 2023-08-27 19:08 | External Medical Summary ---
Author Name Unknown Address Unknown Organization [id number]:LABORATORY [facility] [place] - [address] [place] [address] Laboratory Report Ordering Provider Test Date Status GEOVANI BUSBY 06/29/2023 14:44:29 Final Observation Date Value Abnormality Reference (Units ) Status Folic Acid 06/29/2023 14:44:29 10.5 >4.5 (ng/ mL) Final Performing Location LABORATORY [facility] - [address] [place] [address]
--- OUTSIDE RECORDS SUMMARY | 2023-08-27 19:08 | External Medical Summary ---
Author Name Unknown Address Unknown Organization K01:LABORATORY [place] [address] [address] [facility] [address] [facility] [address] Laboratory Report Ordering Provider Test Date Status KEHINDEGEOVANI 06/29/2023 14:44:29 Final Observation Date Value Abnormality Reference (Units ) Status Retic, % (auto) 06/29/2023 14:44:29 2.46 Above high normal 0.80-1.90 (%) Final Reticulocytes, Absolute 06/29/2023 14:44:29 89.8 31.3-100.1 (K/uL) Final Reticulocyte fraction, immature 06/29/2023 14:44:29 26.6 Above high normal 2.5-20.6 (%) Final Reticulocyte HGB 06/29/2023 14:44:29 35.2 29.7-37.4 (pg) Final Performing Location LABORATORY [facility] - [facility] [address] [facility] [address]
--- OUTSIDE RECORDS SUMMARY | 2023-08-27 19:08 | External Medical Summary ---
Author Name Unknown Address Unknown Organization [id number]:LABORATORY [facility] [place] - [address] [place] [id number] Laboratory Report Ordering Provider Test Date Status GEOVANI BUSBY 06/29/2023 14:44:29 Final Observation Date Value Abnormality Reference (Units ) Status WBC, Total 06/29/2023 14:44:29 8.33 4.00-10.8 0 (K/uL) Final RBC 06/29/2023 14:44:29 3.62 3.85-5.15 (M/uL) Final Hemoglobin 06/29/2023 14:44:29 11.6 Below low normal 12 .0-15.3 (g/dL) Final Anemia reflex testing trigge rs on a HGB < 12.0 for Females and HGB < 13.0 for Males in accordance with the WHO Anemia Guidelines
Anemia reflex testing triggers on a HGB < 12.0 for Females and HGB < 13.0 for Males in accordance with the WHO Anemia Guidelines HCT 06/29/2023 14:44:29 35.3 Below low normal 36. 0-45.2 (%) Final MCV 06/29/2023 14:44:29 97.5 81.5-97.5 (fL) Final MCH 06/29/2023 14:44:29 32.0 27.0-34.0 (pg) Final MCHC 06/29/2023 14:44:29 32.9 32.0-36.0 (g/dL) Final RDW 06/29/2023 14:44:29 12.8 11.5-15.5 (%) Final Platelets 06/29/2023 14:44:29 218 140-400 (K /uL) Final MPV 06/29/2023 14:44:29 11.0 6.6-11.1 ( fL) Final Nucleated erythrocytes/100 leukocytes [Ratio] in Blood by Automated count 06/29/2023 14:44:29 0 <=0 (/100 WBCs) Final Performing Location LABORATORY [facility] - [address] [facility] [address]
--- OUTSIDE RECORDS SUMMARY | 2023-08-27 19:08 | External Medical Summary | Summary of Care ---
Author Name Unknown Organization [facility] Address [address] [place] [address] Phone [phone] Care Team Providers Care Ballet Teacher Name Role Phone Kenny East MD Primary Care Provider +1- [phone] Reason for Visit * Reason Comments Return Visit Encounter Details Date Type Department Care Team (Late st Contact Info) Description 06/29/2023 1:45 PM EDT Office Visit Gynecology/Obstetric s Laila Hutrado [address] [facility] [place] [address] Norma Richardson CRNP [address] [facility] [place] [address] Encounter for supervision of normal first in third trimester* Allergies Active Allergy Reactions Criticality Noted Date Comments Amoxicillin 05/03/1999 rash Bee Venom 04/18/1999 Penicillins Low 09/10/2011 documented as of this encounter (statuses as of 06/29/2023) Medications Medication Sig Dispensed Refills Start Date End Date Status Breast Pump Dispense double electric breast pump. Dx:Z39.1 1 Each 05/22/2023 Active 19 29-1 MG Oral Tablet Chewable Take by mouth. 06/29/2023 Discontinu ed( Medication List Clean Up) documented as of this encounter (statuses as [...] money to get more. Never true 01/09/2023 [place] Depression Scale Answer Date Recorded [place] Depression Scale Total 6 01/09/2023 The thought [...] Sign Reading Time Taken Comments Blood Pressure 108/66 06/29/2023 1:44 PM EDT Pulse - - Temperature - - Respiratory Rate - - Oxygen Saturation - - Inhaled Oxygen Concentration - - Weight 83 kg (183 lb) 06/29/2023 1:44 PM EDT Height - - Body Mass Index 28.66 06/07/2023 2:45 PM EDT documented in this encounter Progress Notes * Norma Richardson CRNP - 06/29/2023 1:46 PM EDT 32w6d Completing labs, including GTT, today. Plans to get Tdap, counseled on this and advised to complete by next visit. Reports good movement. No regular ctx, leaking, bleeding. Discussed BH ctx. Reviewed package clerk selection. Discussed nutrition in . Intends to deliver at [facility]. 2 week return. CARRIE Ramos * Stephanie Contreras LPN - 06/29/2023 1:43 PM EDT 32w6d Denies vaginal bleeding/rom + movement Gtt today No new concerns documented in this encounter Plan of Treatment Upcoming Encounters Date Type Department Care Team (Late st Contact Info) Description 07/17/2023 10:00 AM EDT Office Visit Gynecology/Obstetrics Laila Hurtado [address] [place] [address] Esther Garcia CRNP [address] [place] [address] Health Maintenance Due Date Last Done Comments [...] first documented in this encounter Care Teams Ballet Teacher Relationship Specialty Start Date End Date Kenny East MD [address] [facility] [place] [address] PCP - General 03/16/06 documented as of this encounter
--- OUTSIDE RECORDS SUMMARY | 2023-08-27 19:08 | External Medical Summary | Summary of Care ---
Author Name Unknown Organization [facility] Address [address] [place] [address] Phone [phone] Care Team Providers Care Sensor Operator Name Role Phone Kenny East MD Primary Care Provider +1- [phone] Reason for Visit * Reason Comments Return Visit Encounter Details Date Type Department Care Team (Late st Contact Info) Description 08/06/2023 1:30 PM EDT Office Visit Gynecology/Obstetric s Laila Hurtado [address] [place] [address] Norma Richardson CRNP [address] [place] [address] Encounter for supervision of normal first in third trimester* Allergies Active Allergy Reactions Criticality Noted Date Comments Amoxicillin 05/03/1999 rash Bee Venom 04/18/1999 Penicillins Low 09/10/2011 documented as of this encounter (statuses as of 08/06/2023) Medications Medication Sig Dispensed Refills Start Date End Date Status Breast Pump Dispense double electric breast pump. Dx:Z39.1 1 Each 05/22/2023 Active documented as of this encounter (statuses as of 08/06/2023) Active Problems Problem Noted Date Diagnosed Date , normal first 01/09/2023 Anxiety 12/18/2022 Dysmenorrhea 10/25/2012 Allergic rhinitis 01/16/2012 ADVANCE DIRECTIVE INFORMATION 09/20/2004 Overview: Not applicable (under age of 18) CONJUNCTIVITIS, ALLERGIC 05/03/1999 Estimated Date of Delivery Comme nts Yes 08/18/2023 Based on last me nstrual period of 11/11/2022 (Exact Date) documented as of this encounter (statuses as of 08/06/2023) Resolved Problems Problem Noted Date Diagnosed Date [...] as of this encounter (statuses as of 08/06/2023) Immunizations Name Administration Dates Next Due HPV [...] money to get more. Never true 01/09/2023 [place] Depression Scale Answer Date Recorded [place] Depression Scale Total 6 01/09/2023 The thought [...] No 01/09/2023 Does the household have a peak behavioral health services[facility] source of income? (Household - for ages [...] Sign Reading Time Taken Comments Blood Pressure 106/64 08/06/2023 1:33 PM EDT Pulse - - Temperature - - Respiratory Rate - - Oxygen Saturation - - Inhaled Oxygen Concentration - - Weight 85.7 kg (189 lb) 08/06/2023 1:33 PM EDT Height - - Body Mass Index 29.6 07/17/2023 10:18 AM EDT documented in this encounter Progress Notes * Norma Richardson CRNP - 08/06/2023 1:36 PM EDT 38w2d Doing well, some BH ctx. No leaking/bleeding. Baby is active. Reviewed labor signs, movement, when to call. Recommend delivery before 42 weeks. 1 week return CARRIE Ramos documented in this encounter Plan of Treatment Upcoming Encounters Date Type Department Care Team (Late st Contact Info) Description 08/14/2023 1:45 PM EDT Office Visit Gynecology/Obstetrics [facility] [address] [place] [address] Norma Richardson CRNP [address] [place] [address] Health Maintenance Due Date Last Done Comments [...] first documented in this encounter Care Teams Sensor Operator Relationship Specialty Start Date End Date Kenny East MD [address] [place] [address] PCP - General 03/16/06 documented as of this encounter
--- OUTSIDE RECORDS SUMMARY | 2023-08-27 19:09 | External Medical Summary | Summary of Care ---
Author Name Unknown Organization [facility] Address [address] [place] [address] Phone [phone] Care Team Providers Care Computer Customer Support Specialist Name Role Phone Kenny East MD Primary Care Provider +1- [phone] Reason for Visit * Reason Onset Date Comments Appointment 06/26/2023 Encounter Details Date Type Department Care Team (Late st Contact Info) Description 06/26/2023 Telephone Gynecology/Obstetrics [facility] [address] [place] [address] Sonia Arnett MD [address] [place] [address] Appointment Allergies Active Allergy Reactions Criticality Noted Date Comments Amoxicillin 05/03/1999 rash Bee Venom 04/18/1999 Penicillins Low 09/10/2011 documented as of this encounter (statuses as of 06/27/2023) Medications Medication Sig Dispensed Refills Start Date End Date Status 19 29-1 MG Oral Tablet Chewable Take by mouth. Active Breast Pump Dispense double electric breast pump. Dx:Z39.1 1 Each 05/22/2023 Active documented as of this encounter (statuses as of 06/27/2023) Active Problems Problem Noted Date Diagnosed Date , normal first 01/09/2023 Anxiety 12/18/2022 Dysmenorrhea 10/25/2012 Allergic rhinitis 01/16/2012 ADVANCE DIRECTIVE INFORMATION 09/20/2004 Overview: Not applicable (under age of 18) CONJUNCTIVITIS, ALLERGIC 05/03/1999 Estimated Date of Delivery Comme nts Yes 08/18/2023 Based on last me nstrual period of 11/11/2022 (Exact Date) documented as of this encounter (statuses as of 06/27/2023) Resolved Problems Problem Noted Date Diagnosed Date [...] as of this encounter (statuses as of 06/27/2023) Immunizations Name Administration Dates Next Due HPV [...] money to get more. Never true 01/09/2023 [place] Depression Scale Answer Date Recorded [place] Depression Scale Total 6 01/09/2023 The thought [...] encounter Miscellaneous Notes * Telephone Encounter - Vanessa Whitley OSA - 06/26/2023 12:54 PM EDT Pt calling to schedule PN with CMN nothing searching Please assist for appt if any come avail Took 1st [address] Arnett on Sun. Thank you. documented in this encounter Plan of Treatment Upcoming Encounters Date Type Department Care Team (Late st Contact Info) Description 06/29/2023 3:00 PM EDT Office Visit Gynecology/Obstetrics [facility] [address] [facility] [place] [address] Sonia Arnett MD [address] [place] [address] [place] [address] Health Maintenance Due Date Last Done Comments Depression Screening 2000 DTaP,Tdap,and Td Vaccines (6 - Tdap) 04/10/2003 04/09/2003, 06/06/1993, 06/06/1993, Additional history exists COVID-19 Vaccine ( - season) 2022 Influenza Vaccine (FLU shot) (Season [...] filedocumented as of this encounter Care Teams Computer Customer Support Specialist Relationship Specialty Start Date End Date Kenny East MD [address] [place] [address] PCP - General 03/16/06 documented as of this encounter
--- OUTSIDE RECORDS SUMMARY | 2023-08-27 19:09 | External Medical Summary | Summary of Care ---
Author Name Unknown Organization [facility] Address [address] [place] [address] Phone [phone] Care Team Providers Care Chemical Operations And Training Name Role Phone Kenny East MD Primary Care Provider +1- [phone] Encounter Details Date Type Department Care Team (Late st Contact Info) Description 06/21/2023 Telephone Gynecology/Obstetrics [facility] [address] [place] [address] Kenya Rodriguez [facility] [address] [place] [address] Allergies Active Allergy Reactions Criticality Noted Date Comments Amoxicillin 05/03/1999 rash Bee Venom 04/18/1999 Penicillins Low 09/10/2011 documented as of this encounter (statuses as of 06/22/2023) Medications Medication Sig Dispensed Refills Start Date End Date Status 19 29-1 MG Oral Tablet Chewable Take by mouth. 0 Active Breast Pump Dispense double electric breast pump. Dx:Z39.1 1 Each 0 05/22/2023 Active documented as of this encounter (statuses as of 06/22/2023) Active Problems Problem Noted Date Diagnosed Date , normal first 01/09/2023 Anxiety 12/18/2022 Dysmenorrhea 10/25/2012 Allergic rhinitis 01/16/2012 ADVANCE DIRECTIVE INFORMATION 09/20/2004 Overview: Not applicable (under age of 18) CONJUNCTIVITIS, ALLERGIC 05/03/1999 Estimated Date of Delivery Comme nts Yes 08/18/2023 Based on last me nstrual period of 11/11/2022 (Exact Date) documented as of this encounter (statuses as of 06/22/2023) Resolved Problems Problem Noted Date Diagnosed Date [...] as of this encounter (statuses as of 06/22/2023) Immunizations Name Administration Dates Next Due HPV [...] money to get more. Never true 01/09/2023 [place] Depression Scale Answer Date Recorded [place] Depression Scale Total 6 01/09/2023 The thought [...] encounter Miscellaneous Notes * Telephone Encounter - Kenya Rodriguez CNM - 06/21/2023 12:55 PM EDT Called patient in response to the encounter below. States that all of her questions were answered by the RN. Patient is planning to have CBC drawn next week, uncertain if she will have syphilis screen and 1 hour GTT drawn. She states she was told by a previous nurse practitioner that she does not have diabetes, but that we just need to confirm that with the lab test (1 hour GTT). I gently explained to the patient that we do not know at this time if she has gestational diabetes. The 1 hour GTT is used to determine if she has gestational diabetes. Explained that this can be done with one blood draw (for CBC, syphilis screen, and GTT). Explained that GDM can still occur in healthy women of a no rmal weight, even without risk factors. Explained that risks of uncontrolled GDM include having a large baby, shoulder dystocia, and poor glycemic control. Explained and offered the Fresh Test as an alternative. Patient thanked me and verbalized understanding. She had no additional questions. Estehr Jaime is scheduled with you on 06/26/23. Kenya Rodriguez CNM 06/21/23 1:03 PM * Telephone Encounter - Roseanna Eugene RN - 06/21/2023 10:24 AM EDT SAVANNA Zambrano about conversation had with pt. T/C from pt. Pt asking about necessary labs that need completed. Pt aware she is to have 28 week labwork completed. Pt is anxious about blood work and anxious about the glucose test. Pt states she cannot "physically" complete at home glucose testing with 4x checks/day. Pt understands if she does not complete glucose testing she may be treated in delivery as if she does have GDM. Pt encouraged to clarify this with provider at her next visit. Pt told baby may be treated as if mom had GDM which can mean glucose checks for baby after delivery. Pt understands why we check for GDM in and understands the effects it can have on herself and her unborn child. Pt asking what 1 hr glucose testing entails and is now considering completing. Pt also considering where she would like to deliver,[facility] vs [facility]. Pt aware she can further discuss this with provider at her next visit. Pt plans to complete CBC prior to next appt and believes she will also do the glucose test. documented in this encounter Plan of Treatment Upcoming Encounters Date Type Department Care Team (Late st Contact Info) Description 06/26/2023 9:00 AM EDT Office Visit [facility] [address] [place] [address] Esther Garcia CRNP [address] [place] [address] Health Maintenance Due Date Last Done Comments [...] filedocumented as of this encounter Care Teams Chemical Operations And Training Relationship Specialty Start Date End Date Kenny East MD [address] [place] [address] PCP - General 03/16/06 documented as of this encounter
--- OUTSIDE RECORDS SUMMARY | 2023-08-27 19:09 | External Medical Summary | Summary of Care ---
Author Name Unknown Organization [facility] Address [address] [place] [address] Phone [phone] Care Team Providers Care Motion Pictures Cartoonist Name Role Phone Kenny East MD Primary Care Provider +1- [phone] Encounter Details Date Type Department Care Team (Late st Contact Info) Description 01/05/2023 Telephone Gynecology/Obstetrics [facility] [address] [place] [address] Esther Garcia CRNP [address] [place] [address] Allergies Active Allergy Reactions Criticality Noted Date Comments Amoxicillin 05/03/1999 rash Bee Venom 04/18/1999 Penicillins Low 09/10/2011 documented as of this encounter (statuses as of 03/21/2023) Medications Medication Sig Dispensed Refills Start Date End Date Status 19 29-1 MG Oral Tablet Chewable Take by mouth. 0 Activ e documented as of this encounter (statuses as of 03/21/2023) Active Problems Problem Noted Date Diagnosed Date , normal first 01/09/2023 Anxiety 12/18/2022 Dysmenorrhea 10/25/2012 Allergic rhinitis 01/16/2012 ADVANCE DIRECTIVE INFORMATION 09/20/2004 Overview: Not applicable (under age of 18) CONJUNCTIVITIS, ALLERGIC 05/03/1999 Estimated Date of Delivery Comme nts Yes 08/18/2023 Based on last me nstrual period of 11/11/2022 (Exact Date) documented as of this encounter (statuses as of 03/21/2023) Resolved Problems Problem Noted Date Diagnosed Date [...] as of this encounter (statuses as of 03/21/2023) Immunizations Name Administration Dates Next Due HPV [...] money to get more. Never true 01/09/2023 [place] Depression Scale Answer Date Recorded [place] Depression Scale Total 6 01/09/2023 The thought [...] encounter Miscellaneous Notes * Telephone Encounter - Roxana Samaniego OSA - 01/05/2023 2:20 PM EST Apt rescheduled same day at [facility]. LMOM letting pt know to come in on 01/09 at 12:45pm. * Telephone Encounter - Deya Taylor RN - 01/05/2023 1:30 PM EST Patient called for [facility] intake. Patient needs her US rescheduled if possible. States she cannot get off work Sunday. Asking if there is any US available Sunday before her appointment in office. Please see if there are any openings to move appointment. Advised patient we do need her to have dating US before her appointment. She verbalized understanding. Please contact pt to r/s. Preferred number in chart is best number to reach at. documented in this encounter Plan of Treatment Upcoming Encounters Date Type Department Care Team (Late st Contact Info) Description 03/21/2023 2:00 PM EST Office Visit Gynecology/Obstetrics Laila Hurtado [address] [place] [address] Esther Garcia CRNP [address] [place] [address] Health Maintenance Due Date Last Done Comments COVID-19 Vaccine (#1) 03/07/1989 Depression Screening 2000 DTaP,Tdap,and Td Vaccines (6 - Tdap) 04/10/2003 04/09/2003, 06/06/1993, 06/06/1993, Additional history exists Influenza Vaccine (FLU shot) (#1) 2022 12/05/1994 Pap Smear 01/09/2026 01/09/2023, 06/05, 06/19/2011 [...] filedocumented as of this encounter Care Teams Motion Pictures Cartoonist Relationship Specialty Start Date End Date Kenny East MD [address] [place] [address] PCP - General 03/16/06 documented as of this encounter
--- OUTSIDE RECORDS SUMMARY | 2023-08-27 19:09 | External Medical Summary | Summary of Care ---
Author Name Unknown Organization [facility] Address [address] [place] [address] Phone [phone] Care Team Providers Care Plate Straightener Name Role Phone Kenny East MD Primary Care Provider +1- [phone] Reason for Visit * Reason Comments Return Visit Encounter Details Date Type Department Care Team (Late st Contact Info) Description 05/22/2023 2:15 PM EDT Office Visit Gynecology/Obstetric s Laila Hurtado [address] [place] [address] Esther Garcia CRNP [address] [facility] [place] [address] Encounter for supervision of normal first in second trimester* Allergies Active Allergy Reactions Criticality Noted Date Comments Amoxicillin 05/03/1999 rash Bee Venom 04/18/1999 Penicillins Low 09/10/2011 documented as of this encounter (statuses as of 05/22/2023) Medications Medication Sig Dispensed Refills Start Date End Date Status 19 29-1 MG Oral Tablet Chewable Take by mouth. 0 Active Breast Pump Dispense double electric breast pump. Dx:Z39.1 1 Each 0 05/22/2023 Active documented as of this encounter (statuses as of 05/22/2023) Active Problems Problem Noted Date Diagnosed Date , normal first 01/09/2023 Anxiety 12/18/2022 Dysmenorrhea 10/25/2012 Allergic rhinitis 01/16/2012 ADVANCE DIRECTIVE INFORMATION 09/20/2004 Overview: Not applicable (under age of 18) CONJUNCTIVITIS, ALLERGIC 05/03/1999 Estimated Date of Delivery Comme nts Yes 08/18/2023 Based on last me nstrual period of 11/11/2022 (Exact Date) documented as of this encounter (statuses as of 05/22/2023) Resolved Problems Problem Noted Date Diagnosed Date [...] as of this encounter (statuses as of 05/22/2023) Immunizations Name Administration Dates Next Due HPV [...] money to get more. Never true 01/09/2023 [place] Depression Scale Answer Date Recorded [place] Depression Scale Total 6 01/09/2023 The thought [...] Sign Reading Time Taken Comments Blood Pressure 100/60 05/22/2023 2:19 PM EDT Pulse - - Temperature - - Respiratory Rate - - Oxygen Saturation - - Inhaled Oxygen Concentration - - Weight 82.6 kg (182 lb) 05/22/2023 2:19 PM EDT Height 170.2 cm (5' 7") 05/22/2023 2:19 PM EDT Body Mass Index 28.51 05/22/2023 2:19 PM EDT documented in this encounter Progress Notes * Esther Garcia CRNP - 05/22/2023 2:34 PM EDT 27w3d Missed her last appt, will do glucola at next visit. Baby is active. Denies contractions, bleeding, or LOF. Discussed TDAP with next visit. CARRIE Gandhi * Angie Pa LPN - 05/22/2023 2:19 PM EDT 27w3d documented in this encounter Plan of Treatment Upcoming Encounters Date Type Department Care Team (Late st Contact Info) Description 06/07/2023 1:50 PM EDT [facility] [address] [place] [id number] Antony Hurtado Balwinder [address] [place] [address] 06/07/2023 2:15 PM EDT Office Visit Gynecology/Obstetrics [facility] [address] [place] [address] Esther Garcia CRNP [address] [place] [address] Scheduled Orders Name Type Priority Associated Diagnoses Orde r Schedule 50-G GESTATIONAL GLUCOSE, 1 HOUR Lab Routine Encounter for supervision of normal first in second trimester Expected: 05/22/2023 (Approximate), Expires: 05/21/2024 CBC WITH WBC DIFFERENTIAL AND ANEMIA REFLEX WORKUP Lab Routine Encounter for supervision of normal first in second trimester Expected: 05/22/2023 (Approximate), Expires: 05/21/2024 SYPHILIS ANTIBODY SCREEN WITH REFLEX TO RPR Lab Routine Encounter for supervision of normal first in second trimester Expected: 05/22/2023 (Approximate), Expires: 05/21/2024 Health Maintenance Due Date Last Done Comments [...] for supervision of normal first in second trimester- Primary Supervision of normal first documented in this encounter Care Teams Plate Straightener Relationship Specialty Start Date End Date Kenny East MD [address] [place] [address] PCP - General 03/16/06 documented as of this encounter
--- OUTSIDE RECORDS SUMMARY | 2023-08-27 19:09 | External Medical Summary | Summary of Care ---
Author Name Unknown Organization [facility] Address [address] [place] [address] Phone [phone] Care Team Providers Care Barrel Lapper Name Role Phone Kenny East MD Primary Care Provider +1- [phone] Reason for Visit * Reason Comments Return Visit Encounter Details Date Type Department Care Team (Late st Contact Info) Description 05/22/2023 2:15 PM EDT Office Visit Gynecology/Obstetric s Laila Hurtado [address] [place] [address] Esther Garcia CRNP [address] [facility] [place] [address] Encounter for supervision of normal first in [...] money to get more. Never true 01/09/2023 [place] Depression Scale Answer Date Recorded [place] Depression Scale Total 6 01/09/2023 The thought [...] 06/07/2023 1:50 PM EDT [facility] [address] [place] [id number] Antony Hurtado Balwinder [address] [place] [address] 06/07/2023 2:15 PM EDT Office Visit Gynecology/Obstetrics Gregorio[facility]san Hurtado [address] [place] [address] Esther Garcia CRNP [address] [place] [address] Scheduled Orders Name Type Priority Associated Diagnoses [...] first documented in this encounter Care Teams Barrel Lapper Relationship Specialty Start Date End Date Kenny East MD [address] [place] [address] PCP - General 03/16/06 documented as of this encounter
--- OUTSIDE RECORDS SUMMARY | 2023-08-27 19:09 | External Medical Summary | Summary of Care ---
Author Name Unknown Organization [facility] Address [address] [place] [address] Phone [phone] Care Team Providers Care Real Estate Manager Name Role Phone Kenny East MD Primary Care Provider +1- [phone] Reason for Visit * Reason Comments Return Visit Encounter Details Date Type Department Care Team (Late st Contact Info) Description 03/21/2023 2:00 PM EST Office Visit Gynecology/Obstetric s Laila Hurtado [address] [place] [address] Esther Garcia CRNP [address] [facility] [place] [id number] Encounter for supervision of normal first in [...] money to get more. Never true 01/09/2023 [place] Depression Scale Answer Date Recorded [place] Depression Scale Total 6 01/09/2023 The thought [...] Sign Reading Time Taken Comments Blood Pressure 104/68 03/21/2023 1:58 PM EST Pulse - - Temperature - - Respiratory Rate - - Oxygen Saturation - - Inhaled Oxygen Concentration - - Weight 76.2 kg (168 lb) 03/21/2023 1:58 PM EST Height 170.2 cm (5' 7") 03/21/2023 1:58 PM EST Body Mass Index 26.31 03/21/2023 1:58 PM EST documented in this encounter Progress Notes * Esther Garcia CRNP - 03/21/2023 2:08 PM EST 18w4d Thinks she felt FM last week, but none this week. Worried about this. No other concerns. Reassured once FHT auscultated with doppler. Denies bleeding or LOF. Anatomy u/s in 2-4 weeks. CARRIE Gandhi documented in this encounter Nursing Notes * Anika Mccoy LPN - 03/21/2023 2:00 PM EST 18w4d [place] FM last week, concerned as she has not felt any since. documented in this encounter Plan of Treatment Upcoming Encounters Date Type Department Care Team (Late st Contact Info) Description 04/10/2023 2:15 PM EST Imaging Radiology [facility] [address] [place] [address] 04/16/2023 9:45 AM EDT Office Visit Gynecology/Obstetrics [facility] [address] [place] [address] Kenya Rodriguez, [facility] [address] [place] [address] Scheduled Orders Name Type Priority Associated Diagnoses Orde r Schedule US PREG SINGLE/1ST GEST, 14 WEEKS OR LATER Medical Imaging Routine Encounter for supervision of normal first in second trimester Expected: 04/19/2023 (Approximate), Expires: 04/18/2024 Health Maintenance Due Date Last Done Comments [...] first documented in this encounter Care Teams Real Estate Manager Relationship Specialty Start Date End Date Kenny East MD [address] [place] [address] PCP - General 03/16/06 documented as of this encounter
--- OUTSIDE RECORDS SUMMARY | 2023-08-27 19:09 | External Medical Summary | Summary of Care ---
Author Name Unknown Organization [facility] Address [address] [place] [address] Phone [phone] Care Team Providers Care Medical Bill Processor Name Role Phone Kenny East MD Primary Care Provider +1- [phone] Reason for Visit * Reason Comments Return Visit Encounter Details Date Type Department Care Team (Late st Contact Info) Description 06/07/2023 2:45 PM EDT Office Visit Gynecology/Obstetric s [facility] [address] [place] [address] Kenya Rodriguez, [facility] [address] [place] [address] Encounter for supervision of normal first in third trimester* Allergies Active Allergy Reactions Criticality Noted Date Comments Amoxicillin 05/03/1999 rash Bee Venom 04/18/1999 Penicillins Low 09/10/2011 documented as of this encounter (statuses as of 06/07/2023) Medications Medication Sig Dispensed Refills Start Date End Date Status 19 29-1 MG Oral Tablet Chewable Take by mouth. 0 Active Breast Pump Dispense double electric breast pump. Dx:Z39.1 1 Each 0 05/22/2023 Active documented as of this encounter (statuses as of 06/07/2023) Active Problems Problem Noted Date Diagnosed Date , normal first 01/09/2023 Anxiety 12/18/2022 Dysmenorrhea 10/25/2012 Allergic rhinitis 01/16/2012 ADVANCE DIRECTIVE INFORMATION 09/20/2004 Overview: Not applicable (under age of 18) CONJUNCTIVITIS, ALLERGIC 05/03/1999 Estimated Date of Delivery Comme nts Yes 08/18/2023 Based on last me nstrual period of 11/11/2022 (Exact Date) documented as of this encounter (statuses as of 06/07/2023) Resolved Problems Problem Noted Date Diagnosed Date [...] as of this encounter (statuses as of 06/07/2023) Immunizations Name Administration Dates Next Due HPV [...] money to get more. Never true 01/09/2023 [place] Depression Scale Answer Date Recorded [place] Depression Scale Total 6 01/09/2023 The thought [...] Sign Reading Time Taken Comments Blood Pressure 104/64 06/07/2023 2:45 PM EDT Pulse - - Temperature - - Respiratory Rate - - Oxygen Saturation - - Inhaled Oxygen Concentration - - Weight 83.1 kg (183 lb 3.2 oz) 06/07/2023 2:45 P M EDT Height 170.2 cm (5' 7") 06/07/2023 2:45 PM EDT Body Mass Index 28.69 06/07/2023 2:45 PM EDT documented in this encounter Progress Notes * Kenya Rodriguez CNM - 06/07/2023 3:10 PM EDT Yeni Ang is a 32 year old female here for her routine OB appointment at 29w5d Her Estimated Date of Delivery: 08/18/23 REVIEW OF SYSTEMS: She affirms movement. Denies vaginal bleeding, LOF, contractions, N/V, headaches, vision changes, and RUQ pain. No concerns for depression. She was prescribed anxiety medication 2 years ago, took it for one month, then stopped. Wants to consider medication for anxiety. Has a fear of blood. PHYSICAL EXAM: Filed Vitals: 06/07/23 1445 BP: 104/64 Weight: 83.1 kg (183 lb 3.2 oz) Height: 1.702 m (5' 7") +FHT 150-160bpm Fundal height: 29cm ASSESSMENT/PLAN: (Z34.00) , normal first (primary encounter diagnosis) Plan: -discussed that [facility] does not have 24/ global upstream marketing manager coverage -discussed pain management options at [facility] -recommended [employer] online childbirth education classes - planning to complete CBC and syphilis screen when she completes her glucose screen -recommended 1 hour GTT as soon as possible. Offered for her to check BG 4x daily or do "The Fresh Test" instead. Patient elects The Fresh Test. Provided handout and re-ordered 1 hour GTT with this in the comments. - has breast pump at home Recommended TDAP; patient declined - labor precautions and kick counts reviewed - RTO in 2 weeks Kenya Rodriguez CNM documented in this encounter Nursing Notes * Deya Taylor RN - 06/07/2023 2:47 PM EDT Patient here for 29w5d No concerns Would like to discuss doing 28wk labs Deya Taylor RN documented in this encounter Plan of Treatment Upcoming Encounters Date Type Department Care Team (Late st Contact Info) Description 06/21/2023 2:15 PM EDT Office Visit Gynecology/Obstetrics [facility] [address] [place] [address] Norma Richardson CRNP [address] [place] [address] Scheduled Orders Name Type Priority Associated Diagnoses Orde r Schedule 50-G GESTATIONAL GLUCOSE, 1 HOUR Lab Routine Encounter for supervision of normal first in third trimester Expected: 06/07/2023, Expires: 06/06/2024 Health Maintenance Due Date Last Done Comments [...] first documented in this encounter Care Teams Medical Bill Processor Relationship Specialty Start Date End Date Kenny East MD [address] [place] [address] PCP - General 03/16/06 documented as of this encounter
[2023-08-27] MEDS: LACTATED RINGER'S 1,000 ML IV PRN (23:18)
[2023-08-27] MEDS: BUTORPHANOL TARTRATE 2 MG/ML VIAL IV ONE (23:33)
[2023-08-28] MEDS: BUTORPHANOL TARTRATE 2 MG/ML VIAL IV PRN (02:43)
--- NOTE | 2023-08-28 06:46 | Obstetrical Progress Note ---
Date of Service August 28, 2023 Assessment & Plan (1) Encounter for induction of labor: Present on Admission?: Yes Plan Admit to L and D regular diet x 2 then NPO/IV fluids epidural as the pt desires Admission and Anticipated Discharge Date Admission Date: August 27, 2023 Subjective pt in sevee pain, c/o regular uterine contractions, desires epidural. pt go 3 doses of Stadol, no pain relief Review of Systems Constitutional: as per Subjective / HPI Respiratory: as per Subjective / HPI Cardiovascular: as per Subjective / HPI Gastrointestinal: as per Subjective / HPI Physical Exam Constitutional: WD/WN, vitals as above Respiratory: normal respiratory effort, lungs clear to auscultation Cardiovascular: RRR, no murmur, no edema Results & Data Vital Signs (Past 12 Hours) Vital Signs Temp Pulse Resp BP Pulse Ox O2 Del Method 08/28/23 06:38 79 98 08/28/23 06:33 76 L 08/28/23 06:33 94 H 08/28/23 06:33 98 H 77 L 08/28/23 06:28 98 H 96 08/28/23 06:23 107 H 97 08/28/23 06:18 102 H 95 08/28/23 06:13 100 H 95 08/28/23 06:08 68 94 08/28/23 06:03 69 93 08/28/23 05:58 86 98 08/28/23 05:53 72 94 08/28/23 05:48 82 94 08/28/23 05:43 97 H 96 08/28/23 05:38 73 94 08/28/23 05:33 66 94 08/28/23 05:28 70 92 08/28/23 05:23 73 94 08/28/23 05:18 81 98 08/28/23 05:13 77 97 08/28/23 05:08 84 94 08/28/23 05:03 80 96 08/28/23 04:58 94 H 95 08/28/23 04:53 85 98 08/28/23 04:48 68 95 08/28/23 04:43 84 95 08/28/23 04:38 73 94 08/28/23 04:33 77 95 08/28/23 04:28 100 H 97 08/28/23 04:23 80 96 08/28/23 04:18 87 97 08/28/23 04:13 73 96 08/28/23 04:08 82 95 08/28/23 04:03 77 97 08/28/23 03:58 94 H 96 08/28/23 03:53 74 96 08/28/23 03:48 78 96 08/28/23 03:43 76 96 08/28/23 03:38 74 95 08/28/23 03:33 81 97 08/28/23 03:28 77 96 08/28/23 03:23 84 95 08/28/23 03:18 79 97 08/28/23 03:13 77 94 08/28/23 03:08 73 95 08/28/23 03:03 69 94 08/28/23 02:58 75 92 08/28/23 02:53 76 92 08/28/23 02:51 88 77 L 08/28/23 02:48 84 95 08/28/23 02:45 76 93 08/28/23 02:43 90 94 08/28/23 02:39 36.9 C 89 20 94 08/28/23 02:38 96 08/28/23 02:38 98 H 08/28/23 02:38 88 115/75 08/28/23 01:11 90 97 08/28/23 01:08 77 94 08/28/23 01:06 79 98 08/28/23 01:01 71 92 08/28/23 00:56 81 93 08/28/23 00:51 89 97 08/28/23 00:46 76 98 08/28/23 00:41 94 08/28/23 00:41 78 08/28/23 00:41 81 93 08/28/23 00:36 79 93 08/28/23 00:35 69 93 08/28/23 00:31 93 H 96 08/28/23 00:26 74 93 24 00:21 73 94 08/28/23 00:20 72 94 08/28/23 00:16 89 94 08/28/23 00:15 75 92 08/28/23 00:11 79 93 08/28/23 00:09 78 94 08/28/23 00:06 81 96 08/28/23 00:04 78 94 08/28/23 00:01 77 94 08/27/23 23:56 94 08/27/23 23:56 89 07/22/24 23:51 91 08/27/23 23:51 69 08/27/23 23:46 93 08/27/23 23:46 78 08/27/23 23:45 94 08/27/23 23:45 75 08/27/23 23:41 88 L 08/27/23 23:41 75 08/27/23 23:38 93 08/27/23 23:38 77 08/27/23 23:36 96 08/27/23 23:36 88 08/27/23 23:31 99 08/27/23 23:31 86 08/27/23 23:26 100 08/27/23 23:26 72 08/27/23 23:21 97 08/27/23 23:21 74 08/27/23 23:16 20 08/27/23 23:16 36.7 C 20 08/27/23 23:16 99 08/27/23 23:16 80 08/27/23 23:16 111/78 08/27/23 19:04 37.0 C 18 08/27/23 19:04 Room Air 08/27/23 19:04 65 08/27/23 19:04 104/75 08/27/23 19:04 18 08/27/23 19:04 37.0 C 18 Laboratory Results 08/27/23 Range/Units 12:36 WBC 7.01 (4.8-10.8) K/ul RBC 3.78 L (4.20-5.40) M/uL Hgb 12.0 (12.0-16.0) g/dl Hct 35.4 L (37.0-47.0) % MCV 93.7 (80.0-100.0) fL MCH 31.7 (25.0-34.0) pg MCHC 33.9 (32.0-36.0) g/dL RDW Std Deviation 44.5 (36.4-46.3) fL RDW Coeff of William 13.2 (11.5-14.5) % Plt Count 185 (130-400) K/uL MPV 11.0 (9.4-12.4) fL Hep Bs Antigen Negative (Negative) Hepatitis C Antibody Negative (Negative) HIV 1&2 Ab/P24 Ag 4thGn Negative (Negative) Blood Type A Positive Antibody Screen NEGATIVE
--- NOTE | 2023-08-28 07:08 | Anesthesiology Consultation ---
Date of Service August 28, 2023 Assessment & Plan Chart Review Chart Review: Acceptable Risk for Labor Epidural Consults Requested none ASA ASA2 Proposed Anesthesia Anesthesia Type: Labor Epidural Risk / Benefits Reviewed With: PT / POA / Parent / Guardian, Accepts Plan and Informed Consent Obtained History Height/Weight Height: 5 ft 7 in Weight: 85.275 kg Allergies Allergy/AdvReac Type Severity Reaction Status Date / Time Penicillins Allergy Anaphylaxis Verified 08/27/23 11:58 latex AdvReac Rash Verified 08/27/23 11:58 Medications Active Medications Generic Name Dose Route Start Last Admin Trade Name Freq PRN Reason Stop Dose Admin Butorphanol Tartrate 1 mg 08/28/23 02:28 08/28/23 05:21 Butorphanol Tartrate 2 Mg/Ml Vial IV 09/27/23 02:27 1 mg Q2HWA PRN Administration Pain Lactated Ringer's 1,000 mls @ 125 mls/hr 08/27/23 12:26 08/28/23 06:39 Lr IV 08/29/23 12:25 999 mls/hr .Q8H PRN Administration L&D Protocol Protocol Past Medical History Medical History No known health problems Exercise / Class Metabolic Activity II 4-5 Yardwork/Stairs/Walk up hill Past Surgical History Surgical History No history of previous surgery Past Anesthesia History No Hx of Anesthesia Complications and No Family Hx of Anesthesia Complications History of PONV No Hx of PONV and No Hx of Motion Sickness Social History Smoking Status: Never smoker Hx Alcohol Use: No Hx Substance Use: No substance use type: does not use Physical Exam Vital Signs Last Vital Signs Temp 98.4 F 08/28/23 02:39 Pulse 96 H 08/28/23 07:06 Resp 20 08/28/23 02:39 BP 114/79 08/28/23 07:06 Pulse Ox 93 08/28/23 06:48 O2 Del Method Room Air 08/27/23 19:04 ENMT Mouth: no dentition abnormality Thyromental Distance: > or= 3.5 Finger Breadths Mallampati Class: II Neck normal visual inspection Respiratory normal respiratory effort Auscultation: lungs clear to auscultation bilaterally Cardiovascular Rate/Rhythm: regular rate and regular rhythm Testing Laboratory Results 08/27/23 12:36 Blood Type A Positive 08/27/23 12:36 Antibody Screen NEGATIVE 08/27/23 12:36
[2023-08-28] MEDS: fentANYL 2 MCG/ML BUPIVacaine 0.125%-NSS 100ML BAG ONE (07:26)
[2023-08-28] MEDS ORDERED: fentaNYL citrate PF 100 MCG/2 ML VIAL EPI PRN (07:27)
[2023-08-28] MEDS ORDERED: ePHEDrine sulfate 50 MG/ML AMP IV PRN (07:27)
[2023-08-28] MEDS ORDERED: diphenhydrAMINE 50 MG/ML VIAL IV PRN (07:27)
[2023-08-28] MEDS ORDERED: NALOXONE HCL 0.4 MG/1 ML VIAL/CARP IV PRN (07:27)
[2023-08-28] MEDS ORDERED: NALOXONE HCL 1 MG in SODIUM CHLORIDE 0.9% 1,000 ML IV PRN (07:27)
[2023-08-28] MEDS ORDERED: SODIUM CHLORIDE 0.9% PF INJ 10 ML VIAL EPI PRN (07:27)
[2023-08-28] MEDS ORDERED: NALBUPHINE HCL 5 MG in SYRINGE 0 ML IV PRN (07:27)
[2023-08-28] MEDS ORDERED: BUPIVACAINE 0.25% PF 30 ML VIAL EPI PRN (07:27)
[2023-08-28] MEDS ORDERED: ROPIVACAINE 0.5% PF 5 MG/ML 20 ML VIAL EPI PRN (07:27)
[2023-08-28] MEDS ORDERED: LIDOCAINE 2% MPF LOCAL 5 ML VIAL EPI PRN (07:27)
[2023-08-28] MEDS: fentaNYL citrate PF 100 MCG/2 ML VIAL ONE (10:29)
[2023-08-28] MEDS: SODIUM CHLORIDE 0.9% PF INJ 10 ML VIAL ONE (10:30)
[2023-08-28] MEDS: SODIUM CHLORIDE 0.9% PF INJ 10 ML VIAL EPI STA (10:31)
[2023-08-28] MEDS: LIDOCAINE 2%/EPINEPHRINE 1:200,000 20 ML PF EPI STA (10:31)
[2023-08-28] MEDS: fentaNYL citrate PF 100 MCG/2 ML VIAL EPI STA (10:31)
[2023-08-28] MEDS: BUPIVACAINE 0.25% PF 30 ML VIAL ONE (10:37)
[2023-08-28] MEDS: LIDOCAINE 2%/EPINEPHRINE 1:200,000 20 ML PF ONE (10:37)
[2023-08-28] MEDS: BUPIVACAINE 0.25% PF 30 ML VIAL EPI STA (10:37)
[2023-08-28] MEDS: ACETAMINOPHEN 325 MG TAB PO PRN (10:58)
[2023-08-28] MEDS ORDERED: OXYTOCIN 30 UNITS/NSS 30 UNITS/500 ML BAG IV SCH (11:00)
[2023-08-28] MEDS: OXYTOCIN 30 UNITS/NSS 30 UNITS/500 ML BAG IV PRN (11:36)
[2023-08-28] MEDS: ONDANSETRON INJ 2 MG/ML 2 ML VIAL IV PRN (12:24)
[2023-08-28] MEDS: fentANYL 2 MCG/ML BUPIVacaine 0.125%-NSS 100ML BAG EPI PRN (16:29)
[2023-08-28] MEDS: ePHEDrine sulfate 50 MG/ML AMP ONE (20:45)
[2023-08-28] MEDS ORDERED: Nursing to Pharmacy Communication SCH (20:45)
[2023-08-28] MEDS ORDERED: ACETAMINOPHEN 325 MG TAB PO PRN (23:12)
[2023-08-28] MEDS ORDERED: bisacodyL 10 MG SUPP PR PRN (23:12)
[2023-08-28] MEDS ORDERED: HYDROCORTISONE ACETATE 25 MG SUPP PR PRN (23:12)
[2023-08-28] MEDS ORDERED: OXYTOCIN 30 UNITS/NSS 30 UNITS/500 ML BAG IV PRN (23:12)
--- NOTE | 2023-08-28 23:12 | Operative Report ---
Post Operative Report Pre & Post Diagnosis in labor live viable male second degree vaginal laceration repair I identified the patient and participated in the time-out.: Yes Procedure Surgeon Kelly Roland MD Tour Bus Driver/Guide none Quantitative Blood Loss (QBL) 234 Findings Consistent with Post-Op Diagnosis live viable male infant Specimens none Anesthesia Type Labor Epidural Complications none Indications in active labor Description of Procedure pt fully dilated and pushing, placed in dorsal lithotomy position, prepped and draped in usual fashion, pt pushed for few minutes, delivered alive viable male infant in OA position, placed the infant on the mothers abdomen, bulb suctioned nose and mouth, cord clamped and cut by the FOB. placenta delivered spontaneously and complete. second degree vaginal laceration noted and repaired with 2.0 vicryl. IV Pitocin started. EBL: 234 cc APGARS; 8,9 at 1 and 5 min I attest to the content of the Intraoperative Record and any orders documented therein. Any exceptions are noted below.
--- NOTE | 2023-08-28 23:26 | Anesthesia Procedure Note ---
Date of Service August 28, 2023 Anesthesia Post Epidural Note Vital Signs Vital Signs: Temp Pulse Resp BP Pulse Ox O2 Del Method 98.4 F 86 18 119/76 98 Room Air 08/28/23 23:10 08/28/23 23:11 08/28/23 23:10 08/28/23 23:11 08/28/23 22:53 08/27/23 19:04 Pain Intensity Left Hip: Pain Intensity: 8 Notes Mental Status: alert / awake / arousable and participated in evaluation Nausea / Vomiting: adequately controlled Pain: adequately controlled Airway Patency, RR, SpO2: stable & adequate BP & HR: stable & adequate Hydration State: stable & adequate Neuraxial Anesthesia: was administered and sensory block is resolving Anesthetic Complications: no major complications apparent and Pt Satisfied with anesthetic care Epidural: Removed without complications and With tip intact
[2023-08-28] MEDS: IBUPROFEN 600 MG TAB PO PRN (23:33)
[2023-08-28] MEDS: DIPHTHER/TETAN/PERTUS Vaccine (Tdap, Adol/Adult) 0.5mL IM ONE (23:36)
[2023-08-29] MEDS: BENZOCAINE 20% SPRY 85 APPLN/85 GM CAN EXT PRN (01:23)
[2023-08-29 06:32] LABS: Hematocrit (blood only) 30.2 % (37.0-47.0); Hemoglobin 10.1 g/dl (12.0-16.0); Mean Corpuscular Hemoglobin 30.9 pg (25.0-34.0); Mean Corpuscular Hgb Conc 33.4 g/dL (32.0-36.0); Mean Corpuscular Volume 92.4 fL (80.0-100.0); Mean Platelet Volume 10.5 fL (9.4-12.4); Platelet Count 157 K/uL (130-400); RDW Coefficient of Variation 13.1 % (11.5-14.5); RDW Standard Deviation 44.2 fL (36.4-46.3); Red Blood Count 3.27 M/uL (4.20-5.40); White Blood Count 16.49 K/ul (4.8-10.8)
[2023-08-29] MEDS: DOCUSATE SODIUM 100 MG CAP PO SCH (07:36)
--- NOTE | 2023-08-29 09:11 | Obstetrical Progress Note ---
Date of Service August 29, 2023 Assessment & Plan Admission and Anticipated Discharge Date Admission Date: August 27, 2023 Subjective Patient is seen and examined. She feels well, no complaints. Ambulating without dizziness Voiding without difficulty Tolerating regular diet with out N&V Bleeding is minimal No fever/ chills/ CP/ SOB/ N&V/ Leg pain Breast feeding without problems Vital Signs Height Weight Body Mass Index Blood Pressure Blood Pressure Position Temperature Temperature Source 5 ft 7 in 85.275 kg 29.4 92/62 L Sitting 36.5 C Oral 08/28/23 07:08 08/28/23 07:08 08/27/23 10:55 08/29/23 07:40 08/29/23 07:40 08/29/23 07:40 08/29/23 07:40 Pulse Rate Respiratory Rate Pulse Oximetry 74 18 97 08/29/23 07:40 08/29/23 07:40 08/29/23 07:40 Lab Results 08/27/23 08/29/23 Range/Units 12:36 05:48 WBC 7.01 16.49 H (4.8-10.8) K/ul RBC 3.78 L 3.27 L (4.20-5.40) M/uL Hgb 12.0 10.1 L (12.0-16.0) g/dl Hct 35.4 L 30.2 L (37.0-47.0) % MCV 93.7 92.4 (80.0-100.0) fL MCH 31.7 30.9 (25.0-34.0) pg MCHC 33.9 33.4 (32.0-36.0) g/dL RDW Std Deviation 44.5 44.2 (36.4-46.3) fL RDW Coeff of William 13.2 13.1 (11.5-14.5) % Plt Count 185 157 (130-400) K/uL MPV 11.0 10.5 (9.4-12.4) fL Hep Bs Antigen Negative (Negative) Hepatitis C Antibody Negative (Negative) HIV 1&2 Ab/P24 Ag 4thGn Negative (Negative) Blood Type A Positive Antibody Screen NEGATIVE PE: General: Alert, orientedx3, NAD Abd: soft, NT, fundus firm, below Umbilicus Perineum intact, Lochia rubra minimal Ext; NT, no edema AP: 32 yo s/p , ppd# 1 VSS Afebrile doing well WBCC elevated, afebrile, repeat in am Continue routine care All questions were answered Results & Data Vital Signs (Past 12 Hours) Vital Signs Temp Pulse Pulse Resp BP BP Pulse Ox 08/29/23 07:40 36.5 C 74 18 92/62 L 97 08/29/23 03:20 36.3 C L 63 18 99/64 L 97 08/29/23 01:00 36.7 C 96 H 18 108/63 99 08/29/23 00:56 96 H 108/63 08/29/23 00:55 36.7 C 18 08/29/23 00:41 100 H 103/66 08/29/23 00:26 95 H 105/66 08/29/23 00:25 36.9 C 18 08/29/23 00:11 96 H 113/79 08/28/23 23:56 80 103/67 08/28/23 23:55 36.9 C 18 08/28/23 23:42 92 H 96/62 L 08/28/23 23:40 36.9 C 18 08/28/23 23:26 78 112/73 08/28/23 23:25 36.9 C 18 08/28/23 23:11 86 119/76 08/28/23 23:10 36.9 C 18 08/28/23 22:56 89 113/79 08/28/23 22:55 36.9 C 18 08/28/23 22:53 86 98 08/28/23 22:48 89 97 08/28/23 22:47 97 H 117/73 08/28/23 22:43 97 H 96 08/28/23 22:38 96 H 97 08/28/23 22:33 83 96 08/28/23 22:28 90 96 08/28/23 22:23 90 96 08/28/23 22:18 80 96 08/28/23 22:17 84 110/74 08/28/23 22:13 87 97 08/28/23 22:07 89 99 08/28/23 22:04 86 75 L 08/28/23 22:02 90 115/80 98 08/28/23 21:57 80 98 08/28/23 21:52 79 97 08/28/23 21:48 90 113/86 08/28/23 21:47 81 98 08/28/23 21:42 89 96 08/28/23 21:37 87 98 08/28/23 21:32 98 08/28/23 21:32 83 08/28/23 21:32 83 105/64 08/28/23 21:27 78 97 08/28/23 21:22 83 97 08/28/23 21:18 83 113/74 08/28/23 21:17 84 97 08/28/23 21:12 82 98 O2 Del Method 08/29/23 07:40 Room Air 08/29/23 03:20 Room Air 08/29/23 01:00 Room Air 08/29/23 00:56 08/29/23 00:55 08/29/23 00:41 08/29/23 00:26 08/29/23 00:25 08/29/23 00:11 08/28/23 23:56 08/28/23 23:55 08/28/23 23:42 08/28/23 23:40 08/28/23 23:26 08/28/23 23:25 08/28/23 23:11 08/28/23 23:10 08/28/23 22:56 08/28/23 22:55 08/28/23 22:53 08/28/23 22:48 08/28/23 22:47 08/28/23 22:43 08/28/23 22:38 08/28/23 22:33 08/28/23 22:28 08/28/23 22:23 08/28/23 22:18 08/28/23 22:17 08/28/23 22:13 08/28/23 22:07 08/28/23 22:04 08/28/23 22:02 08/28/23 21:57 08/28/23 21:52 08/28/23 21:48 08/28/23 21:47 08/28/23 21:42 08/28/23 21:37 08/28/23 21:32 08/28/23 21:32 08/28/23 21:32 08/28/23 21:27 08/28/23 21:22 08/28/23 21:18 08/28/23 21:17 08/28/23 21:12
[2023-08-29] MEDS: PRENATAL VITAMIN 1 TAB PO SCH (11:11)
[2023-08-29] MEDS: FERROUS SULFATE 325 MG TAB PO SCH (11:11)
[2023-08-29] MEDS: bisacodyL 5 MG TABEC PO SCH (20:38)
[2023-08-29] MEDS: oxyCODONE/ACETAMINOPHEN 5mg/325mg TAB PO PRN (20:38)
[2023-08-30 06:34] LABS: Basophils # (auto) 0.05 K/uL (0.00-0.20); Basophils % (auto) 0.5 %; Eosinophils # (auto) 0.16 K/uL (0.00-0.50); Eosinophils % (auto) 1.5 %; Hemoglobin 9.2 g/dl (12.0-16.0); Immature Granulocytes # (auto) 0.03 K/uL (0.01-0.20); Immature Granulocytes % (auto) 0.3 %; Lymphocytes # (auto) 1.83 K/uL (1.20-3.40); Lymphocytes % (auto) 17.5 %; Mean Corpuscular Hgb Conc 32.9 g/dL (32.0-36.0); Mean Corpuscular Volume 94.3 fL (80.0-100.0); Mean Platelet Volume 10.9 fL (9.4-12.4); Monocytes # (auto) 0.68 K/uL (0.11-0.59); Monocytes % (auto) 6.5 %; Neutrophils # (auto) 7.68 K/uL (1.40-6.50); Neutrophils % (auto) 73.7 %; Platelet Count 150 K/uL (130-400); RDW Coefficient of Variation 13.4 % (11.5-14.5); RDW Standard Deviation 45.9 fL (36.4-46.3); Red Blood Count 2.97 M/uL (4.20-5.40); White Blood Count 10.43 K/ul (4.8-10.8)
--- NOTE | 2023-08-30 10:46 | Obstetrical Progress Note ---
Date of Service August 30, 2023 Subjective Ambulation: ambulating normally Voiding: no voiding problems Passing Gas:: Yes Diet Tolerance:: regular diet Lochia:: Small Feeding Type:: breast feeding Current Pain Level(1-10): 0 doing well plans for d/c Physical Exam Constitutional WD/WN, vitals as above Eyes PERRL, conjunctivae normal, anicteric sclerae Musculoskeletal Extremities: extremities normal to inspection Skin no rashes, warm and dry Neurologic patellar DTR's 2+ bilat, sensation intact Psychiatric A+Ox3, euthymic affect Genitourinary no vaginal lesions, no adnexal mass Results & Data Vital Signs (Past 12 Hours) Vital Signs Temp Pulse Resp BP Pulse Ox O2 Del Method 08/30/23 07:30 36.8 C 78 16 97/65 L 98 Room Air 08/29/23 23:35 36.7 C 85 16 99/60 L Room Air Laboratory Results Laboratory Results - last 48 hr 08/29/23 08/30/23 05:48 05:46 WBC 16.49 H 10.43 RBC 3.27 L 2.97 L Hgb 10.1 L 9.2 L Hct 30.2 L 28.0 L MCV 92.4 94.3 MCH 30.9 31.0 MCHC 33.4 32.9 RDW Std Deviation 44.2 45.9 RDW Coeff of William 13.1 13.4 Plt Count 157 150 MPV 10.5 10.9 Immature Gran % (Auto) 0.3 Neut % (Auto) 73.7 Lymph % (Auto) 17.5 [place] % (Auto) 6.5 Eos % (Auto) 1.5 Baso % (Auto) 0.5 Neut # (Auto) 7.68 H Lymph # (Auto) 1.83 [place] # (Auto) 0.68 H Eos # (Auto) 0.16 Baso # (Auto) 0.05 Immature Gran # (Auto) 0.03
== END 2023-08-30 15:30 | disposition home or self-care (01) | DRG 807 ==
LOC: 4S1 10:38 → 4E2 08-29 02:48